=== PATIENT | female | born 1965 | race Caucasian/White ===

== ENCOUNTER 2018-09-19 06:23 | Inpatient (IN) | payer OTHER, MEDICARE ==
[2018-09-19] MEDS ORDERED: fentaNYL CITRATE 250 MCG/5 ML VIAL ONE (07:31)
[2018-09-19] MEDS ORDERED: SUCCINYLCHOLINE CHLORIDE 200 MG/10 ML VIAL ONE (07:32)
[2018-09-19] MEDS ORDERED: MIDAZOLAM HCL 2 MG/2 ML SINGLE DOSE VIAL ONE ×3 (07:32→09:22)
[2018-09-19] MEDS ORDERED: LIDOCAINE HCL/PF 2% SDV 5ML VIAL ONE (07:32)
[2018-09-19] MEDS ORDERED: ONDANSETRON 4 MG/2 ML VIAL ONE ×2 (07:32→15:43)
[2018-09-19] MEDS ORDERED: ROCURONIUM BROMIDE 50 MG/5 ML VIAL ONE (07:32)
[2018-09-19] MEDS ORDERED: DEXAMETHASONE SOD PHOSPHATE 4 MG/1 ML VIAL ONE (07:32)
[2018-09-19] MEDS ORDERED: PROPOFOL 20 ML ONE ×18 (07:32→14:59)
[2018-09-19] MEDS ORDERED: BENZOIN TINCTURE SWABSTICK TP ONE (07:55)
[2018-09-19] MEDS ORDERED: THROMBIN (BOVINE) 5,000 UNIT VIAL TP ONE ×2 (07:55→12:14)
[2018-09-19] MEDS ORDERED: BUPIVACAINE HCL/PF 0.25% (2.5MG/ML) 10 ML VIAL ONE ×2 (07:55→09:20)
[2018-09-19] MEDS ORDERED: HEPARIN NA (PORCINE) 5,000 UNITS/ML 1ML VIAL ONE (07:55)
[2018-09-19] MEDS ORDERED: BUPIVACAINE LIPOSOME/PF (EXPAREL) 266 MG/20 ML VIAL NR ONE (09:30)
[2018-09-19] MEDS ORDERED: HYDROmorphone HCl 2 MG/ML VIAL ONE (10:12)
[2018-09-19] MEDS ORDERED: morphine SULFATE/Preservative Free 0.5 MG/ML (1cc Syringe) ONE (10:41)
[2018-09-19] MEDS ORDERED: KETAMINE HCL 200 MG/20 ML VIAL ONE (11:15)
[2018-09-19] MEDS ORDERED: ceFAZolin SODIUM 1 GM VIAL ONE (11:26)
[2018-09-19] MEDS ORDERED: ceFAZolin SODIUM 1 GM VIAL IVPB ONE (11:30)
[2018-09-19] MEDS ORDERED: TRANEXAMIC ACID 1000 MG/10 ML VIAL ONE ×2 (11:51→13:26)
--- NOTE | 2018-09-19 14:59 | PN ---
Progress Note (short form) - Note Progress Note: 52F s/p L3, L4, L5, S1 laminectomies; bilateral L2 laminotomies; L3-L4, L4-L5, L5-S1 discectomies; L3-L4, L4-L5, L5-S1 PLIF; insertion of biomechanical device L3-L4, L4-L5, L5-S1; L3-S1 posterior arthrodesis; L3-S1 posterior instrumentation POD #0. Intra-operative durotomy s/p successful primary repair. -Admit to ICU post-op. -Pain control: per anaesthesia team; recommend METAL FITTERS AND MACHINISTS; No NSAID's. -NPO until flatus. -Strict bedrest x 48 hrs. post-op d/t intra-operative durotomy. -DVT PPx: -Mechanical only: GABBY's, SCD's. -Incentive spirometry q15min. -q4h B/L LE NV checks. -Post-op antibiotics x 2 doses. -f/u AM labs. -f/u drain output. -d/c Chapman catheter when patient ambulating comfortably. -Care per medical hospitalist team. -No bending, lifting more than 5lbs, or twisting x 6 months. -Discharge planning[facility]; call for appointment; . -Will follow. Shane Navarrete MD (Orthopaedic Surgery).
--- NOTE | 2018-09-19 15:09 | OP ---
Operative Note - Note: Operative Date: 09/19/18 Pre-Operative Diagnosis: 1. 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 2. L3-S1 spinal stenosis with neurogenic claudication. 3. Lumbar scoliosis. 4. Multi-level lumbar segmental instability. 5. Epidural lipomatosis. Operation: 1. L3, L4, L5, S1 laminectomies. 2. L2 laminotomy. 3. L3-L4, L4-L5 , L5-S1 discectomies. 4. L3-L4, L4-L5, L5-S1 PLIF. 5. Insertion of biomechanical devices L3-L4, L4-L5, L5-S1. 6. L3-S1 posterior arthrodesis. 7. L3-S1 posterior instrumentation. 8. Bone autograft. 9. Bone allograft. 10. Bone marrow aspiration. 11. Stem cell autograft. 12. Complex wound closure ( 15cm). 13. Intra-operative biplanar fluoroscopy. 14. Intra-operative neural monitoring Findings: 1. Epidural lipomatosis 2. Segmental instability L3-S1 Surgeon: Shane Navarrete Supervisor Of Guidance And Testing: Héctor Navarrete Anesthesiologist/SALES ORDER SPECIALIST: Carolina Bravo Anesthesia: General, Local (Erector spinae block) Specimens Removed: L3-L4, L4-L5, L5-S1 discs Estimated Blood Loss (mls): 1,700 Drains & Tubes with Location: 1 x superficial HemoVac Blood Volume Replaced (mls): 500 (Cell saver) Fluid Volume Replaced (mls): 3,000 (Crystalloid) Operative Report Dictated: Yes
[2018-09-19] MEDS ORDERED: GLYCOPYRROLATE 0.2 MG/1 ML VIAL ONE ×2 (15:25→15:43)
[2018-09-19] MEDS ORDERED: NEOSTIGMINE METHYLSULFATE 0.5 MG/1 ML - 10 ML MDV ONE (15:25)
[2018-09-19] MEDS ORDERED: ESMOLOL HCL 200,000 MCG/20 ML VIAL ONE (15:50)
[2018-09-19] MEDS ORDERED: ONDANSETRON 4 MG/2 ML VIAL IVPUSH PRN ×2 (16:56→17:33)
[2018-09-19] MEDS ORDERED: LACTATED RINGERS SOLUTION 1,000 ML IV SCH ×2 (17:00→17:45)
--- NOTE | 2018-09-19 17:14 | CONSULT ---
Consultation: REQUESTING PROVIDER: CONSULT REQUEST: We have been asked to medically evaluate this patient for admission to ICU. HISTORY OF PRESENT ILLNESS: 52 y/o F s/p L3, L4, L5, S1 laminectomies; bilateral L2 laminotomies; L3-L4, L4- L5, L5-S1 discectomies; L3-L4, L4-L5, L5-S1 PLIF; insertion of biomechanical device L3-L4, L4-L5, L5-S1; L3-S1 posterior arthrodesis; L3-S1 posterior instrumentation POD #0. Intra-operative durotomy s/p successful primary repair. Patient tolerated the procedure well. 1700mls estimated blood loss. Awake and alert in ICU. Pain well controlled however has mild pain over the incision site. Denies fevers, chills, chest pain, SOB, headache, abdominal pain, nausea, vomiting, diarrhea, constipation. REVIEW OF SYSTEMS: CONSTITUTIONAL: Absent: fever, chills, diaphoresis, generalized weakness, malaise, loss of appetite, weight change HEENT: Absent: rhinorrhea, nasal congestion, throat pain, throat swelling, difficulty swallowing, mouth swelling, ear pain, eye pain, visual changes CARDIOVASCULAR: Absent: chest pain, syncope, palpitations, irregular heart rate, lightheadedness , peripheral edema RESPIRATORY: Absent: cough, shortness of breath, dyspnea with exertion, orthopnea, wheezing, stridor, hemoptysis GASTROINTESTINAL: Absent: abdominal pain, abdominal distension, nausea, vomiting, diarrhea, constipation, melena, hematochezia GENITOURINARY: Absent: dysuria, frequency, urgency, hesitancy, hematuria, flank pain, genital pain MUSCULOSKELETAL: Present: back pain Absent: myalgia, arthralgia, joint swelling, neck pain SKIN: Absent: rash, itching, pallor HEMATOLOGIC/IMMUNOLOGIC: Absent: easy bleeding, easy bruising, lymphadenopathy, frequent infections ENDOCRINE: Absent: unexplained weight gain, unexplained weight loss, heat intolerance, cold intolerance NEUROLOGIC: Absent: headache, focal weakness or paresthesias, dizziness, unsteady gait, seizure, mental status changes, bladder or bowel incontinence PSYCHIATRIC: Absent: anxiety, depression, suicidal or homicidal ideation, hallucinations. PHYSICAL EXAMINATION Vital Signs - 24 hr 09/19/18 09/19/18 07:17 07:38 Temperature 97.8 F Pulse Rate 83 Respiratory 18 Rate Blood Pressure 112/64 O2 Sat by Pulse 95 Oximetry (%) GENERAL: A&Ox3, NAD HEAD: NCAT EYES: PERRL, EOMI, sclera anicteric, conjunctiva clear. No lid lag. EARS, NOSE, THROAT: Moist mucous membranes. NECK: Supple without lymphadenopathy or JVD LUNGS: CTA b/l, No wheezes, no crackles HEART: Regular rate and rhythm, normal S1 and S2 without murmur ABDOMEN: Soft, nontender, not distended, + bowel sounds, no guarding LOWER EXTREMITIES: 2+ pulses, No calf tenderness. No peripheral edema. NEUROLOGICAL: Cranial nerves II-XII intact. Normal speech. SKIN: Warm, dry Laboratory Results - last 24 hr 09/19/18 09/19/18 06:51 07:30 Blood Type B NEGATIVE B NEGATIVE Antibody Screen Negative Active Medications Hydromorphone HCl (Dilaudid Living Specialist -) 10 mg REFRIGERATION TECH REFRIGERATION TECH NAVYA; Protocol Stop: 09/22/18 17:14 Lactated Ringer's (Lactated Ringers Solution) 1,000 mls @ 125 mls/hr IV ASDIR NAVYA Ondansetron HCl (Zofran Injection) 4 mg IVPUSH Q6H PRN PRN Reason: NAUSEA AND/OR VOMITING Stop: 09/20/18 03:00 ASSESSMENT/PLAN: 52 y/o F s/p L3, L4, L5, S1 laminectomies; bilateral L2 laminotomies; L3-L4, L4- L5, L5-S1 discectomies; L3-L4, L4-L5, L5-S1 PLIF; insertion of biomechanical device L3-L4, L4-L5, L5-S1; L3-S1 posterior arthrodesis; L3-S1 posterior instrumentation; Intra-operative durotomy s/p successful primary repair POD #0 presents to the ICU for further monitoring #Neuro S/P Spinal Surgery -Pain control per anaesthesia team; recommend REFRIGERATION TECH; No NSAID's -q4h B/L LE NV checks #Cardio -No active issues -Maintaining MAP >65 without pressor support -Will continue to monitor #Pulmonary -No active issues -Incentive spirometry q15min -Supplemental O2 PRN to maintain SpO2>90% #GI: -NPO until passes flatus. #MSK: -Strict bedrest x 48 hrs. post-op d/t intra-operative durotomy. -No bending, lifting more than 5lbs, or twisting x 6 months. as per ortho. #FEN: -LR @ 125ml/hr -Replete lytes PRN -NPO until passes flatus #PPx -DVT: GABBY's, SCD's #FLD: -Chapman catheter in place, d/c once ambulating -HemoVac drain present at bedside Code Status: Full code Dispo: We will continue to follow the patient. Thank you for this consultative opportunity. Visit type - Emergency Visit Emergency Visit: Yes ED Registration Date: 09/19/18 Care time: The patient presented to the Emergency Department on the above date and was hospitalized for further evaluation of their emergent condition. - New Patient This patient is new to me today: Yes Date on this admission: 09/19/18 - Critical Care Critical Care patient: Yes Total Critical Care Time (in minutes): 40 Critical Care Statement: The care of this patient involved high complexity decision making to prevent further life threatening deterioration of the patient 's condition and/or to evaluate & treat vital organ system(s) failure or risk of failure.
[2018-09-19] MEDS ORDERED: AZELASTINE HCL IH PRN (17:30)
[2018-09-19] MEDS ORDERED: ALBUTEROL SO4 0.083% IH SOL 2.5 MG/3 ML VIAL.NEB. NEB PRN (17:30)
[2018-09-19] MEDS ORDERED: NAPROXEN SCJ PRN (17:30)
[2018-09-19] MEDS ORDERED: PATIENT'S OWN MEDICATION (NON-FORMULARY) (Linaclotide [Linzess] 145 MCG) PO PRN (17:30)
[2018-09-19] MEDS ORDERED: SUMATRIPTAN SCJ PRN (17:30)
[2018-09-19] MEDS ORDERED: ZOLPIDEM TARTRATE 5 MG TABLET PO PRN (17:30)
[2018-09-19] MEDS: HYDROmorphone *PCA* 10MG/50ML DISP.SYRIN PCA SCH (17:45)
[2018-09-19] MEDS: ACETAMINOPHEN 1000 MG/100 ML VIAL (NON FORMULARY) IVPB SCH (18:10)
--- NOTE | 2018-09-19 18:22 | OP ---
DATE OF OPERATION: DATE OF DICTATION: 09/19/2018 SURGEON: Shane Navarrete MD DEPUTY [employer]ONWE[employer]'S ATTORNEY: Héctor Navarrete MD PREOPERATIVE DIAGNOSIS: 1. 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 2. L3-S1 spinal stenosis with neurogenic claudication. 3. Lumbar scoliosis. 4. Multi-level lumbar segmental instability. 5. Epidural lipomatosis. POSTOPERATIVE DIAGNOSIS: 1. 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 2. L3-S1 spinal stenosis with neurogenic claudication. 3. Lumbar scoliosis. 4. Multi-level lumbar segmental instability. 5. Epidural lipomatosis. OPERATION PERFORMED: 1. L3, L4, L5, S1 laminectomies. 2. L2 laminotomy. 3. L3-L4, L4-L5, L5-S1 discectomies. 4. L3-L4, L4-L5, L5-S1 PLIF. 5. Insertion of biomechanical devices L3-L4, L4-L5, L5-S1. 6. L3-S1 posterior arthrodesis. 7. L3-S1 posterior instrumentation. 8. Repair durotomy 9. Bone autograft. 10. Bone allograft. 11. Bone marrow aspiration. 12. Stem cell autograft. 13. Complex wound closure (15cm). 14. Intra-operative biplanar fluoroscopy. 15. Intra-operative neural monitoring ANESTHESIA: General. ANTIBIOTICS GIVEN: 2 g Kefzol given preoperative, 1 Kefzol given at the time of seating of the instrumentation. ESTIMATED BLOOD LOSS: 1700 mL. Cell Saver 500 mL given back. DESCRIPTION OF PROCEDURE: The patient was correctly identified. Brought to the operating room. Time-out was called. Imaging was available for intraoperative evaluation. With the patient prone on a Valentin table, all bony points padded, eyes protected appropriately, and the table seated at 10 degrees head up. The skin was prepped with Betadine scrub solution, wiped off with alcohol, DuraPrep applied with a window drape applied. Midline incision was utilized. Dissection was taken from to the tip of the spinous process of L2 right down to S1. Subperiosteal dissection performed exposing the spinous process of the lamina, the facet structures, and the transverse processes. Hemostasis achieved. Was difficult because of just a general ooze. Correct levels identified for verification of correct details of levels. The anatomical guidelines were also utilized to achieve this. The lamina of L3, L4 , L5 were resected using Leksell rongeurs, Kerrison upcuts, and osteotomizing splitting the pars intra-articularis and imploding the bone inwards with the osteotomy extended into the inferior facet at each level. The bone was imploded into the actual vertebral canal and delivered without any difficulty. Distally just proximal to the S1 edge of the posterior lamina, the dura was adherent to the underlying bone bed, and inadvertently dura was torn resulting in a dura leak. This incidental dural leak was then repaired with 4-0 Nurolon interrupted sutures completely sealed 3 times utilizing Valsalva maneuvers, which showed that there was no leakage but still Surgicel and fibrin glue were placed to seal this completely. The dura was then retracted from right to left. Epidural veins at the 3-4, 4-5, and 5 level were dealt with bipolar Bovie. Each disk was treated in identically the same way with an elliptical annulectomy performed. We morselized the disk at L3-L4 shaving with a size 12 shaver and a size 13-mm Fortilink cage interbody spacer inserted. At L4-L5, a 13 shaver was utilized and a 14-mm cage inserted. At L5-S1, a 12-mm Fortilink spacer was utilized. Solid fixation of each cage utilized. Anterior arthrodesis was achieved by packing each interbody space prior to the insertion of the cage with autologous bone, which was harvested from the posterior elements of the laminectomy, milled with a Midas Thad mill, and packed into the interbody space appropriately. Verification of the positions of the cage was noted on x-ray as lateral fluoroscopy x-ray excellent positioning noted. The pedicles of L3, L4, L5, S1 were then identified using anatomic guidelines. Using lateral fluoroscopy, the pedicles were drilled with a 4/5 drill bit. The pedicles in L3, L4, L5 were 6.5-mm x 45-mm screws. The S1 screws were 40 x 7.5 screws. Solid fixation achieved throughout. Verification with lateral fluoroscopic in AP. Fluoroscopic x-rays revealed excellent positioning. Once this had been performed and neural monitoring was well above the safe level parameters and noted, the rods were contoured appropriately and fixed to the screw heads with the appropriate caps and final tightening with the torque device. One Crosslink applied that is proximally. The wounds were thoroughly lavaged throughout the procedure. The retractors were released. The muscles gently retracted to expose the transverse processes, and this area was packed with bone graft. This was a mixture of autograft expanded with allograft. Bone marrow aspirate concentrate was harvested from the left posterior ilium and mixed with the bone graft itself. The muscle of the erector spinae was carefully evaluated. Small fragmented areas of muscle were resected. The wounds were thoroughly lavaged again. Closure fascia 1 Vicryl, subcutaneous 1- 0 and 2-0 Vicryl, skin 3-0 Monocryl with Steri-Strips. Drainage, 1/8" HemoVac superficial to gravity only. Plan for 48 hours bedrest. No other orders at this stage except for the routine nursing orders and antibiotic usage over the next 24 hours. MD SHGAUFTA Sanchez/[id number] MTDD
[2018-09-19] MEDS ORDERED: PT OWN MED DRAWER 7, Y5N ONE (18:43)
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
[2018-09-19] MEDS ORDERED: traZODone HCL 100 MG TABLET (FP) PO SCH (22:00)
[2018-09-19] MEDS: DULoxetine HCL 30 MG CAPSULE.DR (FP) PO SCH (22:42)
[2018-09-19] MEDS: DONEPEZIL HCL 10 MG TABLET (FP) PO SCH (22:42)
[2018-09-19] MEDS: TIZANIDINE HCL 4 MG TABLET PO SCH (22:42)
[2018-09-19] MEDS: GABAPENTIN 300 MG CAPSULE (FP) PO SCH (22:43)
[2018-09-19] MEDS: PANTOPRAZOLE 40 MG TABLET (FP) PO SCH (22:43)
[2018-09-19] MEDS ORDERED: ceFAZolin 2 GRAM PREMIX BAG IVPB SCH (23:00)
[2018-09-19] MEDS: oxyCODONE HCL 10 MG SUSTAINED ACTING TABLET PO SCH (23:39)
[2018-09-19] MEDS: LORazepam 1 MG TABLET PO SCH (23:39)
[2018-09-19] MEDS: CEFAZOLIN 2 GM/D5W 2 GM/50 ML ML IVPB SCH (23:41)
[2018-09-20] MEDS ORDERED: PT OWN MED DRAWER 7, Y5N ONE ×7 (00:52→18:37)
[2018-09-20] MEDS: traZODone HCL 100 MG TABLET (FP) PO SCH ×2 (01:00→21:44)
[2018-09-20] MEDS: ACETAMINOPHEN 1000 MG/100 ML VIAL (NON FORMULARY) IVPB SCH ×2 (01:05→09:50)
[2018-09-20] MEDS: oxyCODONE HCL 5 MG TABLET PO PRN ×2 (03:01→07:26)
[2018-09-20] MEDS: LORazepam 1 MG TABLET PO SCH ×3 (05:18→21:08)
[2018-09-20] MEDS: CYCLOBENZAPRINE HCL 10 MG TABLET (FP) PO SCH ×3 (05:19→21:09)
[2018-09-20] MEDS: oxyCODONE HCL 10 MG SUSTAINED ACTING TABLET PO SCH (05:19)
[2018-09-20] MEDS: GABAPENTIN 300 MG CAPSULE (FP) PO SCH ×3 (05:20→21:10)
[2018-09-20 06:04] LABS: BASO % 0.1 % (0-2.0); HEMATOCRIT 26.9 % (32.4-45.2); HEMOGLOBIN 8.9 GM/dL (10.7-15.3); LYMPH % 12.5 % (8-40); MCH 28.5 pg (25.7-33.7); MCHC 33.2 g/dl (32.0-36.0); MEAN CELL VOLUME 85.8 fl (80-96); MEAN PLT VOLUME 8.1 fl (7.5-11.1); NEUT % 75.4 % (42.8-82.8); PLATELET COUNT 260 K/MM3 (134-434); RBC 3.14 M/mm3 (3.60-5.2); RDW 15.5 % (11.6-15.6); WHITE BLOOD COUNT 9.8 K/mm3 (4.0-10.0)
[2018-09-20 06:17] LABS: ALBUMIN 2.7 g/dl (3.4-5.0); ALK PHOS 120 U/L (45-117); ANION GAP 5 MMOL/L (8-16); BILIRUBIN,TOTAL 0.2 mg/dL (0.2-1); BLOOD UREA NITROGEN 9 mg/dL (7-18); CALCIUM 7.4 mg/dL (8.5-10.1); CHLORIDE 110 mmol/L (98-107); CO2 28 mmol/L (21-32); CREATININE 0.9 mg/dL (0.55-1.3); GLUCOSE,RANDOM 120 mg/dL (74-106); MAGNESIUM 2.1 mg/dL (1.8-2.4); PHOSPHOROUS 5.3 mg/dL (2.5-4.9); POTASSIUM 4.6 mmol/L (3.5-5.1); SGOT/AST 37 U/L (15-37); SGPT/ALT 22 U/L (13-61); SODIUM 143 mmol/L (136-145)
[2018-09-20] MEDS: CEFAZOLIN 2 GM/D5W 2 GM/50 ML ML IVPB SCH (06:49)
[2018-09-20] MEDS: HYDROmorphone *PCA* 10MG/50ML DISP.SYRIN PCA SCH ×3 (07:29→13:45)
[2018-09-20] MEDS: TIZANIDINE HCL 4 MG TABLET PO SCH ×5 (07:48→21:44)
--- NOTE | 2018-09-20 08:58 | PN ---
Physical Exam: SUBJECTIVE: Patient seen and examined this morning. Continues to have sharp pain , 8/10 over incisional site that comes and goes. Patient passed flatus. Tolerating ventimask overnight. Additionally complains of nausea overnight that has since resolved. Denies any fevers, chills, chest pain, SOB, vomiting, diarrhea, constipation. OBJECTIVE: Vital Signs Period Temp Pulse Resp BP Sys/Mukherjee Pulse Ox Last 24 Hr 97.8 F-99.1 F 84-107 10-20 103-129/50-84 88-97 GENERAL: A&Ox3, NAD HEAD: NCAT EYES: PERRL, EOMI EARS, NOSE, THROAT: Moist mucous membranes NECK: Supple without lymphadenopathy or JVD LUNGS: CTA b/l, No wheezes, no crackles HEART: Regular rate and rhythm, normal S1 and S2 without murmur ABDOMEN: Soft, nontender, not distended, + bowel sounds, no guarding EXTREMITIES: 2+ pulses, No calf tenderness. No peripheral edema. NEUROLOGICAL: Cranial nerves II-XII intact. Normal speech. 5/5 muscle strength to Handgrip, dorsiflexion, plantarflexion. Gross sensation intact globally. SKIN: Warm, dry Laboratory Results - last 24 hr 09/19/18 09/19/18 09/20/18 06:51 07:30 05:15 WBC RBC Hgb Hct MCV MCH MCHC RDW Plt Count MPV Absolute Neuts (auto) Neutrophils % Lymphocytes % Monocytes % Eosinophils % Basophils % Nucleated RBC % Sodium 143 Potassium 4.6 Chloride 110 H Carbon Dioxide 28 Anion Gap 5 L BUN 9 Creatinine 0.9 Creat Clearance w eGFR > 60 Random Glucose 120 H Calcium 7.4 L Phosphorus 5.3 H Magnesium 2.1 Total Bilirubin 0.2 AST 37 ALT 22 Alkaline Phosphatase 120 H Total Protein 5.0 L Albumin 2.7 L Blood Type B NEGATIVE B NEGATIVE Antibody Screen Negative 09/20/18 05:15 WBC 9.8 RBC 3.14 L Hgb 8.9 L Hct 26.9 L MCV 85.8 MCH 28.5 MCHC 33.2 RDW 15.5 Plt Count 260 MPV 8.1 Absolute Neuts (auto) 7.4 Neutrophils % 75.4 Lymphocytes % 12.5 Monocytes % 12.0 H Eosinophils % 0.0 Basophils % 0.1 Nucleated RBC % 0 Sodium Potassium Chloride Carbon Dioxide Anion Gap BUN Creatinine Creat Clearance w eGFR Random Glucose Calcium Phosphorus Magnesium Total Bilirubin AST ALT Alkaline Phosphatase Total Protein Albumin Blood Type Antibody Screen Active Medications Acetaminophen (Ofirmev Injection -) 1,000 mg IVPB Q8H [facility] Stop: 09/20/18 09:46 Last Admin: 09/20/18 01:05 Dose: 1,000 mg Albuterol Sulfate (Ventolin 0.083% Nebulizer Soln -) 1 amp NEB Q4H PRN PRN Reason: Dyspnea Cyclobenzaprine HCl (Flexeril -) 10 mg PO TID [facility] Last Admin: 09/20/18 05:19 Dose: 10 mg Donepezil HCl (Aricept -) 10 mg PO HS [facility] Last Admin: 09/19/18 22:42 Dose: Not Given Duloxetine HCl (Cymbalta -) 60 mg PO BID [facility] Last Admin: 09/19/18 22:42 Dose: Not Given Fluconazole (Diflucan -) 200 mg PO DAILY [facility] Gabapentin (Neurontin -) 600 mg PO TID [facility] Last Admin: 09/20/18 05:20 Dose: 600 mg Hydromorphone HCl (Dilaudid Needle Setter -) 10 mg TRADEMARK AFFIXER TRADEMARK AFFIXER [facility]; Protocol Stop: 09/22/18 17:14 Last Admin: 09/20/18 07:29 Dose: 10 mg Lactated Ringer's (Lactated Ringers Solution) 1,000 mls @ 125 mls/hr IV ASDIR [facility] Last Admin: 09/19/18 16:45 Dose: 125 mls/hr Lorazepam (Ativan -) 2 mg PO TID [facility] Last Admin: 09/20/18 05:18 Dose: 2 mg Non-Formulary Medication (Azelastine Hcl [Astepro]) 2 inh IH PRN PRN PRN Reason: ASTHMA Non-Formulary Medication (Linaclotide [Linzess]) 145 mcg PO PRN PRN PRN Reason: CONSTIPATION Non-Formulary Medication (Sumatriptan Succ/Naproxen Sod) 0.5 ml SCJ HS PRN PRN Reason: HEADACHE Ondansetron HCl (Zofran Injection) 4 mg IVPUSH Q6H PRN PRN Reason: NAUSEA AND/OR VOMITING Oxycodone HCl (Oxycontin -) 20 mg PO TID [facility] Last Admin: 09/20/18 05:19 Dose: 20 mg Oxycodone HCl (Roxicodone -) 10 mg PO Q4H PRN PRN Reason: PAIN LEVEL 7 - 10 Last Admin: 09/20/18 07:26 Dose: 10 mg Pantoprazole Sodium (Protonix -) 40 mg PO BID [facility] Last Admin: 09/19/18 22:43 Dose: Not Given Sertraline HCl (Zoloft -) 50 mg PO DAILY [facility] Tizanidine HCl (Tizanidine Hcl) 4 mg PO QID [facility] Last Admin: 09/20/18 07:48 Dose: Not Given Trazodone HCl (Desyrel -) 300 mg PO HS [facility] Last Admin: 09/20/18 01:00 Dose: 300 mg Zolpidem Tartrate (Ambien -) 10 mg PO HS PRN PRN Reason: INSOMNIA Last Admin: 09/20/18 03:34 Dose: 10 mg ASSESSMENT/PLAN: 52 y/o F with PMHx of Asthma, Anxiety presents to the ICU for further monitoring s/p L3, L4, L5, S1 laminectomies; bilateral L2 laminotomies; L3-L4, L4-L5, L5-S1 discectomies; L3-L4, L4-L5, L5-S1 PLIF; insertion of biomechanical device L3-L4, L4-L5, L5-S1; L3-S1 posterior arthrodesis; L3-S1 posterior instrumentation; Intra-operative durotomy s/p successful primary repair #Neuro S/P Spinal Surgery POD #1 Hx of Diabetic Neuropathy, Dopa responsive Dystonia, Anxiety, Depression, Insomnia, Memory loss ?Dementia, Migraines -Pain control per anaesthesia team; recommend TRADEMARK AFFIXER; No NSAID's -Continue Acetaminophen -D/C Oxycodone, Oxycontin -Pain management (Dr. Burleson) Consulted, Appreciate Rec's -Start MS contin, MS IR, Toradol as per Pain mgmt -Zolpidem, Trazadone for insomnia -Donepezil for memory loss ? Dementia -Lorazepam for Dopa responsive dystonia -Duloxetine, Sertraline for depression -Cyclobenzaprine, Tinzanidine for muscle spasms -Gabapentin for neuropathic pain -Sumatriptan for Migraines -q4h B/L LE NV checks #Cardio -No active issues -Maintaining MAP >65 without pressor support -Will continue to monitor #Pulmonary Hx of Asthma -No active issues -Incentive spirometry q15min -Supplemental O2 PRN to maintain SpO2>90% -Continue Albuterol Neb Q4H PRN, Azelastine 2 inh PRN #GI: Nausea, Vomiting Hx of Constipation -Passed Flatus overnight, Can advance to Soft diet -Continue Pantoprazole 40mg PO BID, Ondansetron 4mg IV Q6H PRN -Continue Linaclotide 145 mcg PRN #MSK: -Strict bedrest x 48 hrs. post-op d/t intra-operative durotomy. -No bending, lifting more than 5lbs, or twisting x 6 months. as per ortho #FEN: -LR @ 125ml/hr -Replete lytes PRN -Advance to Soft diet #PPx -DVT: GABBY's, SCD's -GI: Pantoprazole #FLD: -Chapman catheter in place, d/c once ambulating -HemoVac drain present at bedside Code Status: Full code Dispo: We will continue to follow the patient. Thank you for this consultative opportunity. Visit type - Emergency Visit Emergency Visit: Yes ED Registration Date: 09/19/18 Care time: The patient presented to the Emergency Department on the above date and was hospitalized for further evaluation of their emergent condition. - New Patient This patient is new to me today: No - Critical Care Critical Care patient: Yes Total Critical Care Time (in minutes): 37 Critical Care Statement: The care of this patient involved high complexity decision making to prevent further life threatening deterioration of the patient 's condition and/or to evaluate & treat vital organ system(s) failure or risk of failure.
[2018-09-20] MEDS: FLUCONAZOLE 100 MG TABLET (UD) PO SCH (09:50)
[2018-09-20] MEDS: DULoxetine HCL 30 MG CAPSULE.DR (FP) PO SCH ×2 (09:50→21:09)
[2018-09-20] MEDS: SERTRALINE HCL 50 MG TABLET (FP) PO SCH (09:50)
[2018-09-20] MEDS: PANTOPRAZOLE 40 MG TABLET (FP) PO SCH ×2 (09:51→21:08)
--- NOTE | 2018-09-20 10:50 | CONSULT ---
Consult Consult Specialty:: Pain Management - History Source History Provided By: Patient Limitations to Obtaining History: No Limitations - Past Medical History ...: No (postmenopausal 3 years) Musculoskeletal: Yes: Chronic low back pain - Alcohol/Substance Use Hx Alcohol Use: Yes (occassional) - Smoking History Smoking history: Never smoked Have you smoked in the past 12 months: No Home Medications - Allergies Allergies/Adverse Reactions: Allergies Allergy/AdvReac Type Severity Reaction Status Date / Time aspirin AdvReac Severe Verified 09/16/18 09:40 NSAIDS (Non-Steroidal AdvReac Severe Verified 09/16/18 08:54 Anti-Inflamma - Home Medications Home Medications: Ambulatory Orders Albuterol 0.083% Nebulizer Rachelle [Ventolin 0.083% Nebulizer Soln -] 1 amp .ROUTE PRN PRN 09/16/18 Azelastine HCl [Astepro] 2 inh IH PRN PRN 09/16/18 Cyanocobalamin (Vitamin B-12) [Vitamin B-12] 1,000 mcg SCJ ASDIR 09/16/18 Cyclobenzaprine HCl [Amrix] 30 mg PO DAILY 09/16/18 Donepezil HCl [Aricept] 23 mg PO HS 09/16/18 Duloxetine HCl [Cymbalta] 60 mg PO BID 09/16/18 Fluconazole 200 mg PO PRN PRN 09/16/18 Gabapentin 600 mg PO TID 09/16/18 LORazepam [Ativan] 2 mg PO TID 09/16/18 Linaclotide [Linzess] 145 mcg PO PRN PRN 09/16/18 Omeprazole 40 mg PO BID 09/16/18 Oxycodone HCl/Acetaminophen [Percocet 10-325 mg Tablet] 1 tab PO PRN PRN Oxycodone Myristate [Xtampza ER] 18 mg PO TID 09/16/18 Promethazine HCl [Phenergan] 12.5 mg IJ PRN PRN 09/16/18 Sertraline HCl 50 mg PO DAILY 09/16/18 Sulfamethoxazole/Trimethoprim [Bactrim Ds -] 1 tab PO BID 09/16/18 Sumatriptan Succ/Naproxen Sod 0.5 ml SCJ HS PRN 09/16/18 Tizanidine HCl 4 mg PO QID 09/16/18 Trazodone HCl 300 mg PO HS 09/16/18 Zolpidem Tartrate [Ambien] 10 mg PO PRN PRN 09/16/18 Review of Systems - Review of Systems Eyes: reports: No Symptoms HENT: reports: No Symptoms Neck: reports: No Symptoms Cardiovascular: reports: No Symptoms Respiratory: reports: No Symptoms Gastrointestinal: reports: Constipation Genitourinary: reports: No Symptoms Musculoskeletal: reports: Back Pain Neurological: reports: No Symptoms Pain Intensity: 10 Physical Exam Vital Signs: Vital Signs Temperature 97.8 F 09/20/18 08:00 Pulse Rate 104 H 09/20/18 10:10 Respiratory Rate 20 09/20/18 10:10 Blood Pressure 117/78 09/20/18 10:10 O2 Sat by Pulse Oximetry (%) 97 09/20/18 08:33 Constitutional: Yes: Well Nourished Eyes: Yes: WNL HENT: Yes: WNL Neck: Yes: WNL Respiratory: Yes: WNL Gastrointestinal: Yes: WNL Musculoskeletal: Yes: Back Pain, Other (Dressing s/p fusion) Extremities: Yes: WNL Wound/Incision: Yes: Other (dressing) Neurological: Yes: WNL Labs: CBC, BMP 09/20/18 05:15 09/20/18 05:15 Problem List - Problems (1) Postoperative pain after spinal surgery Assessment/Plan: Discussed in detail with Patient , RN and resident about the pain management. 1. continue current care 2, Bowel regimen 3. DVt prophalyxis 4. PT eval and treat, 5/D/C Oxycontin 6.D/C Oxicodon 7. Start MS contin 30 mg TID 8. MSIR 15 mg po q4 PRN 9. Toradol 15 mg IVPUSH q6 PRN for 3 days after meal. Thanks for allowing for your kind referral Dr. Burleson [phone] Code(s): G89.18 - OTHER ACUTE POSTPROCEDURAL PAIN (2) S/P lumbar spinal fusion Assessment/Plan: as above Code(s): Z98.1 - ARTHRODESIS STATUS
[2018-09-20] MEDS ORDERED: KETOROLAC TROMETHAMINE 15 MG/ML VIAL IVPUSH PRN (10:56)
--- NOTE | 2018-09-20 11:07 | PN ---
Teaching Attending Note Name of Resident: Jackie Kamara ATTENDING PHYSICIAN STATEMENT I saw and evaluated the patient. I reviewed the resident's note and discussed the case with the resident. I agree with the resident's findings and plan as documented. SUBJECTIVE: Patient seen and examined in the ICU. Awake and alert. Pain 8/10. Pain management here for assessment. No CP or SOB. Saturating well on NC O2. Intake & Output 09/17/18 09/18/18 09/19/18 09/20/18 23:59 23:59 23:59 23:59 Intake Total 4475 975 Output Total 4100 1005 Balance 375 -30 Weight 219 lb 226 lb 1.6 oz Last Vital Signs Temp Pulse Resp BP Pulse Ox 97.6 F 104 H 20 117/78 97 09/20/18 10:00 09/20/18 10:10 09/20/18 10:10 09/20/18 10:10 09/20/18 10:00 Active Medications Albuterol Sulfate (Ventolin 0.083% Nebulizer Soln -) 1 amp NEB Q4H PRN PRN Reason: Dyspnea Cyclobenzaprine HCl (Flexeril -) 10 mg PO TID [facility] Last Admin: 09/20/18 05:19 Dose: 10 mg Donepezil HCl (Aricept -) 10 mg PO HS [facility] Last Admin: 09/19/18 22:42 Dose: Not Given Duloxetine HCl (Cymbalta -) 60 mg PO BID [facility] Last Admin: 09/20/18 09:50 Dose: 60 mg Fluconazole (Diflucan -) 200 mg PO DAILY [facility] Last Admin: 09/20/18 09:50 Dose: 200 mg Gabapentin (Neurontin -) 600 mg PO TID [facility] Last Admin: 09/20/18 05:20 Dose: 600 mg Hydromorphone HCl (Dilaudid Data Base Design Analyst -) 10 mg MARKET DEVELOPER MARKET DEVELOPER [facility]; Protocol Stop: 09/22/18 17:14 Last Admin: 09/20/18 10:10 Dose: 10 mg Lactated Ringer's (Lactated Ringers Solution) 1,000 mls @ 125 mls/hr IV ASDIR [facility] Last Admin: 09/19/18 16:45 Dose: 125 mls/hr Ketorolac Tromethamine (Toradol Injection -) 15 mg IVPUSH Q6H PRN PRN Reason: PAIN LEVEL 6-10 Stop: 09/25/18 10:55 Lorazepam (Ativan -) 2 mg PO TID [facility] Last Admin: 09/20/18 05:18 Dose: 2 mg Morphine Sulfate (Ms Contin -) 30 mg PO Q8H [facility] Non-Formulary Medication (Azelastine Hcl [Astepro]) 2 inh IH PRN PRN PRN Reason: ASTHMA Non-Formulary Medication (Linaclotide [Linzess]) 145 mcg PO PRN PRN PRN Reason: CONSTIPATION Non-Formulary Medication (Sumatriptan Succ/Naproxen Sod) 0.5 ml SCJ HS PRN PRN Reason: HEADACHE Ondansetron HCl (Zofran Injection) 4 mg IVPUSH Q6H PRN PRN Reason: NAUSEA AND/OR VOMITING Oxycodone HCl (Oxycontin -) 20 mg PO TID [facility] Last Admin: 09/20/18 05:19 Dose: 20 mg Oxycodone HCl (Roxicodone -) 10 mg PO Q4H PRN PRN Reason: PAIN LEVEL 7 - 10 Last Admin: 09/20/18 07:26 Dose: 10 mg Pantoprazole Sodium (Protonix -) 40 mg PO BID [facility] Last Admin: 09/20/18 09:51 Dose: 40 mg Sertraline HCl (Zoloft -) 50 mg PO DAILY [facility] Last Admin: 09/20/18 09:50 Dose: 50 mg Tizanidine HCl (Tizanidine Hcl) 4 mg PO QID [facility] Last Admin: 09/20/18 09:52 Dose: 4 mg Trazodone HCl (Desyrel -) 300 mg PO HS [facility] Last Admin: 09/20/18 01:00 Dose: 300 mg Zolpidem Tartrate (Ambien -) 10 mg PO HS PRN PRN Reason: INSOMNIA Last Admin: 09/20/18 03:34 Dose: 10 mg OBJECTIVE: GENERAL: A&Ox3, NAD HEAD: NCAT EYES: PERRL, EOMI EARS, NOSE, THROAT: Moist mucous membranes NECK: Supple without lymphadenopathy or JVD LUNGS: CTA b/l, No wheezes, no crackles HEART: Regular rate and rhythm, normal S1 and S2 without murmur ABDOMEN: Soft, nontender, not distended, + bowel sounds, no guarding EXTREMITIES: 2+ pulses, No calf tenderness. No peripheral edema. NEUROLOGICAL: Non-focal. Normal speech. 5/5 muscle strength to Handgrip, dorsiflexion, plantarflexion. Gross sensation intact globally. SKIN: Warm, dry Laboratory Results - last 24 hr 09/19/18 09/19/18 09/20/18 06:51 07:30 05:15 WBC RBC Hgb Hct MCV MCH MCHC RDW Plt Count MPV Absolute Neuts (auto) Neutrophils % Lymphocytes % Monocytes % Eosinophils % Basophils % Nucleated RBC % Sodium 143 Potassium 4.6 Chloride 110 H Carbon Dioxide 28 Anion Gap 5 L BUN 9 Creatinine 0.9 Creat Clearance w eGFR > 60 Random Glucose 120 H Calcium 7.4 L Phosphorus 5.3 H Magnesium 2.1 Total Bilirubin 0.2 AST 37 ALT 22 Alkaline Phosphatase 120 H Total Protein 5.0 L Albumin 2.7 L Blood Type B NEGATIVE B NEGATIVE Antibody Screen Negative 09/20/18 05:15 WBC 9.8 RBC 3.14 L Hgb 8.9 L Hct 26.9 L MCV 85.8 MCH 28.5 MCHC 33.2 RDW 15.5 Plt Count 260 MPV 8.1 Absolute Neuts (auto) 7.4 Neutrophils % 75.4 Lymphocytes % 12.5 Monocytes % 12.0 H Eosinophils % 0.0 Basophils % 0.1 Nucleated RBC % 0 Sodium Potassium Chloride Carbon Dioxide Anion Gap BUN Creatinine Creat Clearance w eGFR Random Glucose Calcium Phosphorus Magnesium Total Bilirubin AST ALT Alkaline Phosphatase Total Protein Albumin Blood Type Antibody Screen ASSESSMENT/PLAN: POD #1: s/p L3, L4, L5, S1 laminectomies; bilateral L2 laminotomies; L3-L4, L4- L5, L5-S1 discectomies; L3-L4, L4-L5, L5-S1 PLIF; insertion of biomechanical device L3-L4, L4-L5, L5-S1; L3-S1 posterior arthrodesis; L3-S1 posterior instrumentation; Intra-operative durotomy s/p successful primary repair Asthma by history: stable Anxiety Flat positioning x 48 hours Pain control per pain management No NSAIDs Lorazepam PRN Incentive Spirometry Mechanical VTE prophylaxis Gabapentin PRN BD [place] PRN Continue home GI Meds Drain output monitoring Floor when cleared by Ortho Dr Grant
[2018-09-20] MEDS: morphine SO4 SUSTAINED ACTING 30 MG TABLET.SA PO SCH ×2 (13:24→21:07)
--- NOTE | 2018-09-20 13:32 | PN ---
Progress Note (short form) - Note Progress Note: Anesthesiology/Acute Pain: POD #1 - s/p L3-4 fusion. VSS. Pt. c/o of a lot of pain - pain scores 9-10/10. Dr. Burleson consultation appreciated. Will increase dose on SENIOR BIOINFORMATICS SPECIALIST to 0.3mg. Will follow.
[2018-09-20] MEDS ORDERED: BISACODYL 10 MG SUPP.RECT PR PRN (14:06)
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
[2018-09-20] MEDS: SODIUM CHLORIDE 1,000 ML IV SCH (16:56)
[2018-09-20] MEDS: DONEPEZIL HCL 10 MG TABLET (FP) PO SCH (21:10)
[2018-09-20] MEDS: SENNOSIDES 8.6MG TABLET (FP) PO PRN (21:45)
[2018-09-21] MEDS: HYDROmorphone *PCA* 10MG/50ML DISP.SYRIN PCA SCH (01:47)
[2018-09-21] MEDS: SODIUM CHLORIDE 1,000 ML IV SCH ×2 (02:00→13:30)
[2018-09-21] MEDS: morphine SO4 SUSTAINED ACTING 30 MG TABLET.SA PO SCH ×3 (05:51→21:49)
[2018-09-21] MEDS: CYCLOBENZAPRINE HCL 10 MG TABLET (FP) PO SCH ×3 (05:51→21:48)
[2018-09-21] MEDS: LORazepam 1 MG TABLET PO SCH ×3 (05:51→21:48)
[2018-09-21] MEDS: DOCUSATE SODIUM 100 MG CAPSULE (FP) PO PRN (05:51)
[2018-09-21] MEDS: GABAPENTIN 300 MG CAPSULE (FP) PO SCH ×3 (05:52→21:48)
[2018-09-21 06:00] LABS: BASO % 0.1 % (0-2.0); EOS % 0.9 % (0-4.5); HEMATOCRIT 24.6 % (32.4-45.2); LYMPH % 14.2 % (8-40); MCH 28.2 pg (25.7-33.7); MCHC 32.6 g/dl (32.0-36.0); MEAN CELL VOLUME 86.5 fl (80-96); MONO % 12.3 % (3.8-10.2); NEUT % 72.5 % (42.8-82.8); PLATELET COUNT 234 K/MM3 (134-434); RBC 2.85 M/mm3 (3.60-5.2); RDW 15.9 % (11.6-15.6); WHITE BLOOD COUNT 9.9 K/mm3 (4.0-10.0)
[2018-09-21 06:28] LABS: ALBUMIN 2.4 g/dl (3.4-5.0); ALK PHOS 106 U/L (45-117); ANION GAP 2 MMOL/L (8-16); BILIRUBIN,TOTAL 0.2 mg/dL (0.2-1); BLOOD UREA NITROGEN 7 mg/dL (7-18); CALCIUM 7.1 mg/dL (8.5-10.1); CHLORIDE 105 mmol/L (98-107); CO2 32 mmol/L (21-32); CREATININE 0.8 mg/dL (0.55-1.3); GLUCOSE,RANDOM 108 mg/dL (74-106); MAGNESIUM 1.8 mg/dL (1.8-2.4); PHOSPHOROUS 2.5 mg/dL (2.5-4.9); POTASSIUM 3.9 mmol/L (3.5-5.1); SGOT/AST 45 U/L (15-37); SGPT/ALT 20 U/L (13-61); SODIUM 138 mmol/L (136-145); TOT PROT 4.8 g/dl (6.4-8.2)
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
[2018-09-21] MEDS ORDERED: morphine SULFATE IMMEDIATE RELEASE 30 MG TAB PO PRN (09:43)
[2018-09-21] MEDS: DULoxetine HCL 30 MG CAPSULE.DR (FP) PO SCH ×2 (10:34→21:48)
[2018-09-21] MEDS: FLUCONAZOLE 100 MG TABLET (UD) PO SCH (10:35)
[2018-09-21] MEDS: PANTOPRAZOLE 40 MG TABLET (FP) PO SCH ×2 (10:35→21:49)
[2018-09-21] MEDS: TIZANIDINE HCL 4 MG TABLET PO SCH ×4 (10:35→21:48)
[2018-09-21] MEDS: SERTRALINE HCL 50 MG TABLET (FP) PO SCH (10:35)
--- NOTE | 2018-09-21 12:34 | PN ---
Teaching Attending Note Name of Resident: Jackie Kamara ATTENDING PHYSICIAN STATEMENT I saw and evaluated the patient. I reviewed the resident's note and discussed the case with the resident. I agree with the resident's findings and plan as documented. SUBJECTIVE: Pt seen and examined in the ICU. Still with significant pain. LEGAL CONSULTANT pump adjusted by anesthesia. +nausea but improved with medications OBJECTIVE: Vital Signs Period Temp Pulse Resp BP Sys/Mukherjee Pulse Ox Last 24 Hr 98.1 F-98.7 F 68-118 6-18 101-138/52-78 97-97 Intake & Output 09/18/18 09/19/18 09/20/18 09/21/18 23:59 23:59 23:59 23:59 Intake Total 4475 2400 1200 Output Total 4100 1810 505 Balance 375 590 695 Weight 99.337 kg 102.512 kg 102.994 kg Gen: NAD at rest Heart: RRR Lung: decreased breath sounds at the bases Abd: soft, nontender Ext: no edema CBC, BMP 09/21/18 05:15 09/21/18 05:15 Active Medications Albuterol Sulfate (Ventolin 0.083% Nebulizer Soln -) 1 amp NEB Q4H PRN PRN Reason: Dyspnea Bisacodyl (Dulcolax Suppository -) 10 mg [place] PRN PRN PRN Reason: CONSTIPATION Cyclobenzaprine HCl (Flexeril -) 10 mg PO TID [facility] Last Admin: 09/21/18 05:51 Dose: 10 mg Docusate Sodium (Colace -) 100 mg PO Q8H PRN PRN Reason: CONSTIPATION Last Admin: 09/21/18 05:51 Dose: 100 mg Donepezil HCl (Aricept -) 10 mg PO HS [facility] Last Admin: 09/20/18 21:10 Dose: 10 mg Duloxetine HCl (Cymbalta -) 60 mg PO BID [facility] Last Admin: 09/21/18 10:34 Dose: 60 mg Fluconazole (Diflucan -) 200 mg PO DAILY [facility] Last Admin: 09/21/18 10:35 Dose: 200 mg Gabapentin (Neurontin -) 600 mg PO TID [facility] Last Admin: 09/21/18 05:52 Dose: 600 mg Hydromorphone HCl (Dilaudid Life Agent -) 10 mg LEGAL CONSULTANT LEGAL CONSULTANT [facility]; Protocol Stop: 09/27/18 13:36 Last Admin: 09/21/18 01:47 Dose: 10 mg Sodium Chloride (Normal Saline -) 1,000 mls @ 100 mls/hr IV ASDIR [facility] Last Admin: 09/21/18 02:00 Dose: 100 mls/hr Lorazepam (Ativan -) 2 mg PO TID [facility] Last Admin: 09/21/18 05:51 Dose: 2 mg Morphine Sulfate (Ms Contin -) 30 mg PO TID [facility] Last Admin: 09/21/18 05:51 Dose: 30 mg Morphine Sulfate (Msir -) 15 mg PO Q4H PRN PRN Reason: PAIN SCALE >7 Non-Formulary Medication (Azelastine Hcl [Astepro]) 2 inh IH PRN PRN PRN Reason: ASTHMA Non-Formulary Medication (Linaclotide [Linzess]) 145 mcg PO PRN PRN PRN Reason: CONSTIPATION Non-Formulary Medication (Sumatriptan Succ/Naproxen Sod) 0.5 ml SCJ HS PRN PRN Reason: HEADACHE Ondansetron HCl (Zofran Injection) 4 mg IVPUSH Q6H PRN PRN Reason: NAUSEA AND/OR VOMITING Pantoprazole Sodium (Protonix -) 40 mg PO BID [facility] Last Admin: 09/21/18 10:35 Dose: 40 mg Senna (Senna -) 2 tab PO HS PRN PRN Reason: CONSTIPATION Last Admin: 09/20/18 21:45 Dose: 2 tab Sertraline HCl (Zoloft -) 50 mg PO DAILY [facility] Last Admin: 09/21/18 10:35 Dose: 50 mg Tizanidine HCl (Tizanidine Hcl) 4 mg PO QID [facility] Last Admin: 09/21/18 10:35 Dose: 4 mg Trazodone HCl (Desyrel -) 300 mg PO HS [facility] Last Admin: 09/20/18 21:44 Dose: 300 mg Zolpidem Tartrate (Ambien -) 10 mg PO HS PRN PRN Reason: INSOMNIA Last Admin: 09/20/18 03:34 Dose: 10 mg ASSESSMENT AND PLAN: Lumbar Spinal Stenosis with Radiculopathy and Neurogenic Claudication s/p L3-S1 Laminectomies/PLIF/Insertion of Biomechanical Devices/Posterior Instrumentation Asthma Dopa Responsive Dystonia Anxiety/Depression - pain control - incentive spirometry - bowel regimen - PO as tolerated - flat positioning until this evening - DVT prophylaxis
[2018-09-21] MEDS ORDERED: PT OWN MED DRAWER 7, Y5N ONE ×2 (13:08→17:02)
--- NOTE | 2018-09-21 14:52 | PN ---
Physical Exam: SUBJECTIVE: Patient seen and examined this morning. OPERATING ROOM SPECIALIST dosage adjusted by anesthesia. Denies any fevers, chills, chest pain, SOB, nausea, vomiting, diarrhea, constipation. OBJECTIVE: Vital Signs Period Temp Pulse Resp BP Sys/Mukherjee Pulse Ox Last 24 Hr 98.1 F-99 F 79-118 6-18 101-138/52-78 97-97 GENERAL: A&Ox3, NAD HEAD: NCAT EYES: PERRL, EOMI EARS, NOSE, THROAT: Moist mucous membranes NECK: Supple, No JVD LUNGS: CTA b/l, No wheezes, no crackles HEART: Regular rate and rhythm, normal S1 and S2 without murmur ABDOMEN: Soft, nontender, not distended, + bowel sounds, no guarding EXTREMITIES: 2+ pulses, No calf tenderness. No peripheral edema. NEUROLOGICAL: Cranial nerves II-XII intact. Normal speech. SKIN: Warm, dry Laboratory Results - last 24 hr 09/21/18 09/21/18 05:15 05:15 WBC 9.9 RBC 2.85 L Hgb 8.0 L Hct 24.6 L MCV 86.5 MCH 28.2 MCHC 32.6 RDW 15.9 H Plt Count 234 MPV 8.0 Absolute Neuts (auto) 7.1 Neutrophils % 72.5 Lymphocytes % 14.2 Monocytes % 12.3 H Eosinophils % 0.9 D Basophils % 0.1 Nucleated RBC % 0 Sodium 138 Potassium 3.9 Chloride 105 Carbon Dioxide 32 Anion Gap 2 L BUN 7 Creatinine 0.8 Creat Clearance w eGFR > 60 Random Glucose 108 H Calcium 7.1 L Phosphorus 2.5 Magnesium 1.8 Total Bilirubin 0.2 AST 45 H ALT 20 Alkaline Phosphatase 106 Total Protein 4.8 L Albumin 2.4 L Active Medications Albuterol Sulfate (Ventolin 0.083% Nebulizer Soln -) 1 amp NEB Q4H PRN PRN Reason: Dyspnea Bisacodyl (Dulcolax Suppository -) 10 mg [place] PRN PRN PRN Reason: CONSTIPATION Cyclobenzaprine HCl (Flexeril -) 10 mg PO TID [facility] Last Admin: 09/21/18 13:54 Dose: 10 mg Docusate Sodium (Colace -) 100 mg PO Q8H PRN PRN Reason: CONSTIPATION Last Admin: 09/21/18 05:51 Dose: 100 mg Donepezil HCl (Aricept -) 10 mg PO HS [facility] Last Admin: 09/20/18 21:10 Dose: 10 mg Duloxetine HCl (Cymbalta -) 60 mg PO BID [facility] Last Admin: 09/21/18 10:34 Dose: 60 mg Fluconazole (Diflucan -) 200 mg PO DAILY [facility] Last Admin: 09/21/18 10:35 Dose: 200 mg Gabapentin (Neurontin -) 600 mg PO TID [facility] Last Admin: 09/21/18 13:55 Dose: 600 mg Hydromorphone HCl (Dilaudid Manufacturing Accountant -) 10 mg OPERATING ROOM SPECIALIST OPERATING ROOM SPECIALIST [facility]; Protocol Stop: 09/27/18 13:36 Last Admin: 09/21/18 01:47 Dose: 10 mg Sodium Chloride (Normal Saline -) 1,000 mls @ 100 mls/hr IV ASDIR [facility] Last Admin: 09/21/18 02:00 Dose: 100 mls/hr Lorazepam (Ativan -) 2 mg PO TID [facility] Last Admin: 09/21/18 13:54 Dose: 2 mg Morphine Sulfate (Ms Contin -) 30 mg PO TID [facility] Last Admin: 09/21/18 13:54 Dose: 30 mg Morphine Sulfate (Msir -) 15 mg PO Q4H PRN PRN Reason: PAIN SCALE >7 Non-Formulary Medication (Azelastine Hcl [Astepro]) 2 inh IH PRN PRN PRN Reason: ASTHMA Non-Formulary Medication (Linaclotide [Linzess]) 145 mcg PO PRN PRN PRN Reason: CONSTIPATION Non-Formulary Medication (Sumatriptan Succ/Naproxen Sod) 0.5 ml SCJ HS PRN PRN Reason: HEADACHE Ondansetron HCl (Zofran Injection) 4 mg IVPUSH Q6H PRN PRN Reason: NAUSEA AND/OR VOMITING Pantoprazole Sodium (Protonix -) 40 mg PO BID [facility] Last Admin: 09/21/18 10:35 Dose: 40 mg Senna (Senna -) 2 tab PO HS PRN PRN Reason: CONSTIPATION Last Admin: 09/20/18 21:45 Dose: 2 tab Sertraline HCl (Zoloft -) 50 mg PO DAILY [facility] Last Admin: 09/21/18 10:35 Dose: 50 mg Tizanidine HCl (Tizanidine Hcl) 4 mg PO QID [facility] Last Admin: 09/21/18 13:55 Dose: 4 mg Trazodone HCl (Desyrel -) 300 mg PO HS [facility] Last Admin: 09/20/18 21:44 Dose: 300 mg Zolpidem Tartrate (Ambien -) 10 mg PO HS PRN PRN Reason: INSOMNIA Last Admin: 09/20/18 03:34 Dose: 10 mg ASSESSMENT/PLAN: 52 y/o F with PMHx of Asthma, Anxiety presents to the ICU for further monitoring s/p L3, L4, L5, S1 laminectomies; bilateral L2 laminotomies; L3-L4, L4-L5, L5-S1 discectomies; L3-L4, L4-L5, L5-S1 PLIF; insertion of biomechanical device L3-L4, L4-L5, L5-S1; L3-S1 posterior arthrodesis; L3-S1 posterior instrumentation; Intra-operative durotomy s/p successful primary repair #Neuro S/P Spinal Surgery POD #2 Hx of Diabetic Neuropathy, Dopa responsive Dystonia, Anxiety, Depression, Insomnia, Memory loss ?Dementia, Migraines -Pain control per anaesthesia team; recommend OPERATING ROOM SPECIALIST; No NSAID's -Continue Acetaminophen, MS contin, MS IR, Toradol as per Pain mgmt -Pain management (Dr. Burleson) Consulted, Appreciate Rec's -Zolpidem, Trazadone for insomnia -Donepezil for memory loss ? Dementia -Lorazepam for Dopa responsive dystonia -Duloxetine, Sertraline for depression -Cyclobenzaprine, Tinzanidine for muscle spasms -Gabapentin for neuropathic pain -Sumatriptan for Migraines -q4h B/L LE [place] checks #Cardio -No active issues -Maintaining MAP >65 without pressor support -Will continue to monitor #Pulmonary Hx of Asthma -No active issues -Incentive spirometry q15min -Supplemental O2 PRN to maintain SpO2>90% -Continue Albuterol Neb Q4H PRN, Azelastine 2 inh PRN #GI: Nausea, Vomiting Hx of Constipation -Soft diet -Continue Pantoprazole 40mg PO BID, Ondansetron 4mg IV Q6H PRN, Linaclotide 145 mcg PRN #MSK: -Strict bedrest x 48 hrs. post-op d/t intra-operative durotomy. -No bending, lifting more than 5lbs, or twisting x 6 months. as per ortho #FEN: -NS @ 100ml/hr -Replete lytes PRN -Soft diet #PPx -DVT: GABBY's, SCD's -GI: Pantoprazole #FLD: -Chapman catheter in place, d/c once ambulating -HemoVac drain present at bedside Code Status: Full code Dispo: We will continue to follow the patient. Thank you for this consultative opportunity. Visit type - Emergency Visit Emergency Visit: Yes ED Registration Date: 09/19/18 Care time: The patient presented to the Emergency Department on the above date and was hospitalized for further evaluation of their emergent condition. - New Patient This patient is new to me today: No - Critical Care Critical Care patient: Yes Total Critical Care Time (in minutes): 36 Critical Care Statement: The care of this patient involved high complexity decision making to prevent further life threatening deterioration of the patient 's condition and/or to evaluate & treat vital organ system(s) failure or risk of failure.
--- NOTE | 2018-09-21 17:02 | PATH ---
Surgical Pathology Report Patient Name: KAYLA LARA [facility]. Rec. #: [id number] /Age/Gender: 1965 (Age: 52) / F Account: [id number] Location: [facility]PER Taken: 09/19/2018 Received: 09/20/2018 Reported: 09/21/2018 Physicians: Shane Navarrete M.D. Specimen(s) Received L3-S1 DISC Clinical History Spinal stenosis Final Diagnosis DISC, L3-S1, POSTERIOR LUMBAR INTERBODY FUSION: BENIGN INTERVERTEBRAL DISC TISSUE AND BONE. Electronically Signed María Abernathy M.D. Gross Description Received in formalin labeled "L3-S1 disc," is a 5.5 x 4.2 x 0.7 cm aggregate of comer fragments of fibrocartilaginous tissue. A technical sales representatives portion is submitted in one cassette. DL/09/20/2018 saudi09/20/2018
[2018-09-21] MEDS ORDERED: HYDROmorphone *PCA* 10MG/50ML DISP.SYRIN PCA SCH (20:45)
[2018-09-21] MEDS: traZODone HCL 100 MG TABLET (FP) PO SCH (21:47)
[2018-09-21] MEDS: SENNOSIDES 8.6MG TABLET (FP) PO PRN (21:48)
[2018-09-21] MEDS: DONEPEZIL HCL 10 MG TABLET (FP) PO SCH (21:49)
[2018-09-22] MEDS: SODIUM CHLORIDE 1,000 ML IV SCH ×2 (01:00→21:25)
[2018-09-22] MEDS: GABAPENTIN 300 MG CAPSULE (FP) PO SCH ×3 (06:11→21:23)
[2018-09-22] MEDS: LORazepam 1 MG TABLET PO SCH ×3 (06:11→21:22)
[2018-09-22] MEDS: DOCUSATE SODIUM 100 MG CAPSULE (FP) PO PRN (06:11)
[2018-09-22] MEDS: morphine SO4 SUSTAINED ACTING 30 MG TABLET.SA PO SCH ×3 (06:12→21:22)
[2018-09-22] MEDS: CYCLOBENZAPRINE HCL 10 MG TABLET (FP) PO SCH ×3 (06:12→21:25)
[2018-09-22 06:18] LABS: BASO % 0.3 % (0-2.0); EOS % 0.8 % (0-4.5); HEMATOCRIT 29.5 % (32.4-45.2); HEMOGLOBIN 9.5 GM/dL (10.7-15.3); LYMPH % 9.9 % (8-40); MCH 28.3 pg (25.7-33.7); MCHC 32.2 g/dl (32.0-36.0); MEAN PLT VOLUME 8.1 fl (7.5-11.1); MONO % 10.2 % (3.8-10.2); NEUT % 78.8 % (42.8-82.8); PLATELET COUNT 275 K/MM3 (134-434); RBC 3.36 M/mm3 (3.60-5.2); RDW 15.6 % (11.6-15.6); WHITE BLOOD COUNT 11.5 K/mm3 (4.0-10.0)
[2018-09-22 07:35] LABS: ALBUMIN 2.3 g/dl (3.4-5.0); ALK PHOS 123 U/L (45-117); ANION GAP 8 MMOL/L (8-16); BILIRUBIN,TOTAL 0.3 mg/dL (0.2-1); BLOOD UREA NITROGEN 7 mg/dL (7-18); CALCIUM 7.9 mg/dL (8.5-10.1); CHLORIDE 102 mmol/L (98-107); CO2 30 mmol/L (21-32); CREATININE 0.6 mg/dL (0.55-1.3); GLUCOSE,RANDOM 93 mg/dL (74-106); PHOSPHOROUS 1.9 mg/dL (2.5-4.9); POTASSIUM 4.1 mmol/L (3.5-5.1); SGOT/AST 38 U/L (15-37); SGPT/ALT 20 U/L (13-61); SODIUM 140 mmol/L (136-145); TOT PROT 5.2 g/dl (6.4-8.2)
--- NOTE | 2018-09-22 08:22 | PN ---
Progress Note (short form) - Note Progress Note: Patient stableand c/o stomach pain this morning.Her surgical pain score is 3-4/ 10.So will DC [employer]ANE today and continue PO pain medications.P101,BP 123/78 and Spo2 98% on O2 2L NC.No any anesthesia related problem.Patient DC from the anesthesia care.
[2018-09-22] MEDS: PANTOPRAZOLE 40 MG TABLET (FP) PO SCH ×2 (09:18→21:23)
[2018-09-22] MEDS: DULoxetine HCL 30 MG CAPSULE.DR (FP) PO SCH ×2 (09:18→21:23)
[2018-09-22] MEDS: FLUCONAZOLE 100 MG TABLET (UD) PO SCH (09:18)
[2018-09-22] MEDS: SERTRALINE HCL 50 MG TABLET (FP) PO SCH (09:19)
[2018-09-22] MEDS: TIZANIDINE HCL 4 MG TABLET PO SCH ×4 (09:19→21:27)
[2018-09-22] MEDS ORDERED: NAPH,MB-DB/K PH,MBDB POWDER PACKET PO ONE (09:23)
--- NOTE | 2018-09-22 10:20 | PN ---
Physical Exam: SUBJECTIVE: Patient seen and examined this morning. Was out of bed overnight. No acute overnight events. No new complaints. OBJECTIVE: Vital Signs Period Temp Pulse Resp BP Sys/Mukherjee Pulse Ox Last 24 Hr 98.2 F-99 F 93-114 10-18 104-141/60-86 97-100 GENERAL: A&Ox3, NAD HEAD: NCAT EYES: PERRL, EOMI ENT: Moist mucous membranes NECK: Supple, No JVD LUNGS: CTA b/l, No wheezes, no crackles HEART: Regular rate and rhythm, normal S1 and S2 without murmur ABDOMEN: Soft, nontender, not distended, + bowel sounds, no guarding EXTREMITIES: No edema. NEUROLOGICAL: Cranial nerves II-XII intact. Normal speech. SKIN: Warm, dry Laboratory Results - last 24 hr 09/22/18 09/22/18 05:30 05:30 WBC 11.5 H RBC 3.36 L Hgb 9.5 L Hct 29.5 L D MCV 88.0 MCH 28.3 MCHC 32.2 RDW 15.6 Plt Count 275 MPV 8.1 Absolute Neuts (auto) 9.1 H Neutrophils % 78.8 Lymphocytes % 9.9 D Monocytes % 10.2 Eosinophils % 0.8 Basophils % 0.3 Nucleated RBC % 0 Sodium 140 Potassium 4.1 Chloride 102 Carbon Dioxide 30 Anion Gap 8 BUN 7 Creatinine 0.6 Creat Clearance w eGFR > 60 Random Glucose 93 Calcium 7.9 L Phosphorus 1.9 L Magnesium 2.0 Total Bilirubin 0.3 AST 38 H ALT 20 Alkaline Phosphatase 123 H Total Protein 5.2 L Albumin 2.3 L Active Medications Albuterol Sulfate (Ventolin 0.083% Nebulizer Soln -) 1 amp NEB Q4H PRN PRN Reason: Dyspnea Bisacodyl (Dulcolax Suppository -) 10 mg [place] PRN PRN PRN Reason: CONSTIPATION Last Admin: 09/22/18 08:15 Dose: 10 mg Cyclobenzaprine HCl (Flexeril -) 10 mg PO TID [facility] Last Admin: 09/22/18 06:12 Dose: 10 mg Docusate Sodium (Colace -) 100 mg PO Q8H PRN PRN Reason: CONSTIPATION Last Admin: 09/22/18 06:11 Dose: 100 mg Donepezil HCl (Aricept -) 10 mg PO HS [facility] Last Admin: 09/21/18 21:49 Dose: 10 mg Duloxetine HCl (Cymbalta -) 60 mg PO BID [facility] Last Admin: 09/22/18 09:18 Dose: 60 mg Fluconazole (Diflucan -) 200 mg PO DAILY [facility] Last Admin: 09/22/18 09:18 Dose: 200 mg Gabapentin (Neurontin -) 600 mg PO TID [facility] Last Admin: 09/22/18 06:11 Dose: 600 mg Hydromorphone HCl (Dilaudid Plumbers And Top Helpers -) 10 mg SUGAR MIXER SUGAR MIXER [facility]; Protocol Stop: 09/27/18 20:44 Last Admin: 09/21/18 23:10 Dose: 10 mg Lorazepam (Ativan -) 2 mg PO TID [facility] Last Admin: 09/22/18 06:11 Dose: 2 mg Morphine Sulfate (Ms Contin -) 30 mg PO TID [facility] Last Admin: 09/22/18 06:12 Dose: 30 mg Morphine Sulfate (Msir -) 15 mg PO Q4H PRN PRN Reason: PAIN SCALE >7 Non-Formulary Medication (Azelastine Hcl [Astepro]) 2 inh IH PRN PRN PRN Reason: ASTHMA Non-Formulary Medication (Linaclotide [Linzess]) 145 mcg PO PRN PRN PRN Reason: CONSTIPATION Non-Formulary Medication (Sumatriptan Succ/Naproxen Sod) 0.5 ml SCJ HS PRN PRN Reason: HEADACHE Ondansetron HCl (Zofran Injection) 4 mg IVPUSH Q6H PRN PRN Reason: NAUSEA AND/OR VOMITING Last Admin: 09/22/18 08:23 Dose: 4 mg Pantoprazole Sodium (Protonix -) 40 mg PO BID [facility] Last Admin: 09/22/18 09:18 Dose: 40 mg Senna (Senna -) 2 tab PO HS PRN PRN Reason: CONSTIPATION Last Admin: 09/21/18 21:48 Dose: 2 tab Sertraline HCl (Zoloft -) 50 mg PO DAILY [facility] Last Admin: 09/22/18 09:19 Dose: 50 mg Tizanidine HCl (Tizanidine Hcl) 4 mg PO QID [facility] Last Admin: 09/22/18 09:19 Dose: 4 mg Trazodone HCl (Desyrel -) 300 mg PO [facility] Last Admin: 09/21/18 21:47 Dose: 300 mg Zolpidem Tartrate (Ambien -) 10 mg PO HS PRN PRN Reason: INSOMNIA Last Admin: 09/20/18 03:34 Dose: 10 mg ASSESSMENT/PLAN: 52 y/o F with PMHx of Asthma, Anxiety presents to the ICU for further monitoring s/p L3, L4, L5, S1 laminectomies; bilateral L2 laminotomies; L3-L4, L4-L5, L5-S1 discectomies; L3-L4, L4-L5, L5-S1 PLIF; insertion of biomechanical device L3-L4, L4-L5, L5-S1; L3-S1 posterior arthrodesis; L3-S1 posterior instrumentation; Intra-operative durotomy s/p successful primary repair #Neuro S/P Spinal Surgery POD #3 Hx of Diabetic Neuropathy, Dopa responsive Dystonia, Anxiety, Depression, Insomnia, Memory loss ?Dementia, Migraines -SUGAR MIXER d/c'ed today -Pain control per Pain management; No NSAID's -Pain management (Dr. Burleson) Consulted, Appreciate Rec's -Continue Acetaminophen, MS contin, MS IR, Toradol -Zolpidem, Trazadone for insomnia -Donepezil for memory loss ? Dementia -Lorazepam for Dopa responsive dystonia -Duloxetine, Sertraline for depression -Cyclobenzaprine, Tinzanidine for muscle spasms -Gabapentin for neuropathic pain -Sumatriptan for Migraines -q4h B/L LE [place] checks #Cardio -No active issues -Maintaining MAP >65 without pressor support -Will continue to monitor #Pulmonary Hx of Asthma -No active issues -Incentive spirometry q15min -Supplemental O2 PRN to maintain SpO2>90% -Continue Albuterol Neb Q4H PRN, Azelastine 2 inh PRN #GI: Nausea, Vomiting, resolved Hx of Constipation -Soft diet -Continue Pantoprazole 40mg PO BID, Ondansetron 4mg IV Q6H PRN, Linaclotide 145 mcg PRN -Continue Senna, Colace, Dulcolax Suppository #MSK: -Strict bedrest x 48 hrs completed, Patient Out of bed overnight -No bending, lifting more than 5lbs, or twisting x 6 months. as per ortho #FEN: -PO Fluids -Replete lytes PRN -Soft diet #PPx -DVT: GABBY's, SCD's -GI: Pantoprazole #FLD: -Chapman catheter in place, d/c once ambulating -HemoVac drain present at bedside Code Status: Full code Dispo: Transfer to [facility]-Surg Visit type - Emergency Visit Emergency Visit: Yes ED Registration Date: 09/19/18 Care time: The patient presented to the Emergency Department on the above date and was hospitalized for further evaluation of their emergent condition. - New Patient This patient is new to me today: No - Critical Care Critical Care patient: Yes Total Critical Care Time (in minutes): 36 Critical Care Statement: The care of this patient involved high complexity decision making to prevent further life threatening deterioration of the patient 's condition and/or to evaluate & treat vital organ system(s) failure or risk of failure.
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
--- NOTE | 2018-09-22 12:25 | PN ---
Teaching Attending Note Name of Resident: Jackie Kamara ATTENDING PHYSICIAN STATEMENT I saw and evaluated the patient. I reviewed the resident's note and discussed the case with the resident. I agree with the resident's findings and plan as documented. SUBJECTIVE: Patient seen and examined in the ICU. Sleepy but easily arousable. Remains in Dilaudid PRODUCT MANUFACTURING PROFESSIONAL pump. No CP or SOB. OBJECTIVE: Intake & Output 09/19/18 09/20/18 09/21/18 09/22/18 23:59 23:59 23:59 23:59 Intake Total 4475 2400 2400 1700 Output Total 4100 1810 1060 1105 Balance 039 114 9106 595 Weight 219 lb 226 lb 227 lb 1 oz 240 lb 3.2 oz Last Vital Signs Temp Pulse Resp BP Pulse Ox 98 F 95 H 18 98/54 L 100 09/22/18 10:19 09/22/18 12:00 09/22/18 12:00 09/22/18 12:00 09/22/18 07:50 Active Medications Albuterol Sulfate (Ventolin 0.083% Nebulizer Soln -) 1 amp NEB Q4H PRN PRN Reason: Dyspnea Bisacodyl (Dulcolax Suppository -) 10 mg [place] PRN PRN PRN Reason: CONSTIPATION Last Admin: 09/22/18 08:15 Dose: 10 mg Cyclobenzaprine HCl (Flexeril -) 10 mg PO TID [facility] Last Admin: 09/22/18 06:12 Dose: 10 mg Docusate Sodium (Colace -) 100 mg PO Q8H PRN PRN Reason: CONSTIPATION Last Admin: 09/22/18 06:11 Dose: 100 mg Donepezil HCl (Aricept -) 10 mg PO HS [facility] Last Admin: 09/21/18 21:49 Dose: 10 mg Duloxetine HCl (Cymbalta -) 60 mg PO BID [facility] Last Admin: 09/22/18 09:18 Dose: 60 mg Fluconazole (Diflucan -) 200 mg PO DAILY [facility] Last Admin: 09/22/18 09:18 Dose: 200 mg Gabapentin (Neurontin -) 600 mg PO TID [facility] Last Admin: 09/22/18 06:11 Dose: 600 mg Hydromorphone HCl (Dilaudid Specimen Boss -) 10 mg PRODUCT MANUFACTURING PROFESSIONAL PRODUCT MANUFACTURING PROFESSIONAL [facility]; Protocol Stop: 09/27/18 20:44 Last Admin: 09/21/18 23:10 Dose: 10 mg Sodium Chloride (Normal Saline -) 1,000 mls @ 100 mls/hr IV ASDIR [facility] Last Admin: 09/22/18 01:00 Dose: 100 mls/hr Lorazepam (Ativan -) 2 mg PO TID [facility] Last Admin: 09/22/18 06:11 Dose: 2 mg Morphine Sulfate (Ms Contin -) 30 mg PO TID [facility] Last Admin: 09/22/18 06:12 Dose: 30 mg Morphine Sulfate (Msir -) 15 mg PO Q4H PRN PRN Reason: PAIN SCALE >7 Last Admin: 09/22/18 09:58 Dose: 15 mg Non-Formulary Medication (Azelastine Hcl [Astepro]) 2 inh IH PRN PRN PRN Reason: ASTHMA Non-Formulary Medication (Linaclotide [Linzess]) 145 mcg PO PRN PRN PRN Reason: CONSTIPATION Non-Formulary Medication (Sumatriptan Succ/Naproxen Sod) 0.5 ml SCJ HS PRN PRN Reason: HEADACHE Ondansetron HCl (Zofran Injection) 4 mg IVPUSH Q6H PRN PRN Reason: NAUSEA AND/OR VOMITING Last Admin: 09/22/18 08:23 Dose: 4 mg Pantoprazole Sodium (Protonix -) 40 mg PO BID [facility] Last Admin: 09/22/18 09:18 Dose: 40 mg Potassium Phos/Sodium Phos (Phos-Nak Packet -) 1 packet PO BID [facility] Stop: 09/23/18 22:01 Senna (Senna -) 2 tab PO HS PRN PRN Reason: CONSTIPATION Last Admin: 09/21/18 21:48 Dose: 2 tab Sertraline HCl (Zoloft -) 50 mg PO DAILY [facility] Last Admin: 09/22/18 09:19 Dose: 50 mg Tizanidine HCl (Tizanidine Hcl) 4 mg PO QID [facility] Last Admin: 09/22/18 09:19 Dose: 4 mg Trazodone HCl (Desyrel -) 300 mg PO HS [facility] Last Admin: 09/21/18 21:47 Dose: 300 mg Zolpidem Tartrate (Ambien -) 10 mg PO HS PRN PRN Reason: INSOMNIA Last Admin: 09/20/18 03:34 Dose: 10 mg Gen: NAD at rest Heart: RRR Lung: decreased breath sounds at the bases Abd: soft, nontender Ext: no edema Laboratory Results - last 24 hr 09/22/18 09/22/18 05:30 05:30 WBC 11.5 H RBC 3.36 L Hgb 9.5 L Hct 29.5 L D MCV 88.0 MCH 28.3 MCHC 32.2 RDW 15.6 Plt Count 275 MPV 8.1 Absolute Neuts (auto) 9.1 H Neutrophils % 78.8 Lymphocytes % 9.9 D Monocytes % 10.2 Eosinophils % 0.8 Basophils % 0.3 Nucleated RBC % 0 Sodium 140 Potassium 4.1 Chloride 102 Carbon Dioxide 30 Anion Gap 8 BUN 7 Creatinine 0.6 Creat Clearance w eGFR > 60 Random Glucose 93 Calcium 7.9 L Phosphorus 1.9 L Magnesium 2.0 Total Bilirubin 0.3 AST 38 H ALT 20 Alkaline Phosphatase 123 H Total Protein 5.2 L Albumin 2.3 L ASSESSMENT AND PLAN: Lumbar Spinal Stenosis with Radiculopathy and Neurogenic Claudication s/p L3-S1 Laminectomies/PLIF/Insertion of Biomechanical Devices/Posterior Instrumentation Asthma Dopa Responsive Dystonia Anxiety/Depression - pain control - incentive spirometry - bowel regimen - PO as tolerated - positioning per Ortho - DVT prophylaxis - Floor when cleared by Ortho Dr Grant
[2018-09-22] MEDS ORDERED: SODIUM CHLORIDE 500 ML IV STA (14:54)
--- NOTE | 2018-09-22 20:48 | PN ---
Progress Note (short form) - Note Progress Note: Sedated Still in ICU No report of headache and dressing is dry. PLAN PT mobilize Pain mx to continue
[2018-09-22] MEDS: NAPH,MB-DB/K PH,MBDB POWDER PACKET PO SCH (21:23)
[2018-09-22] MEDS: SENNOSIDES 8.6MG TABLET (FP) PO PRN (21:23)
[2018-09-22] MEDS: DONEPEZIL HCL 10 MG TABLET (FP) PO SCH (21:25)
[2018-09-22] MEDS: traZODone HCL 100 MG TABLET (FP) PO SCH (21:27)
[2018-09-23] MEDS: SODIUM CHLORIDE 1,000 ML IV SCH ×3 (02:00→22:52)
[2018-09-23] MEDS: GABAPENTIN 300 MG CAPSULE (FP) PO SCH ×3 (05:51→22:44)
[2018-09-23] MEDS: CYCLOBENZAPRINE HCL 10 MG TABLET (FP) PO SCH ×3 (05:51→22:46)
[2018-09-23] MEDS: morphine SO4 SUSTAINED ACTING 30 MG TABLET.SA PO SCH ×3 (05:51→22:45)
[2018-09-23] MEDS: LORazepam 1 MG TABLET PO SCH ×3 (05:52→22:47)
[2018-09-23 06:06] LABS: BASO % 0.2 % (0-2.0); EOS % 1.3 % (0-4.5); HEMATOCRIT 24.4 % (32.4-45.2); LYMPH % 13.3 % (8-40); MCH 28.5 pg (25.7-33.7); MCHC 32.9 g/dl (32.0-36.0); MEAN CELL VOLUME 86.7 fl (80-96); MEAN PLT VOLUME 7.5 fl (7.5-11.1); MONO % 10.8 % (3.8-10.2); NEUT % 74.4 % (42.8-82.8); PLATELET COUNT 285 K/MM3 (134-434); RBC 2.82 M/mm3 (3.60-5.2); RDW 15.4 % (11.6-15.6); WHITE BLOOD COUNT 8.4 K/mm3 (4.0-10.0)
[2018-09-23 06:36] LABS: ALK PHOS 107 U/L (45-117); ANION GAP 4 MMOL/L (8-16); BILIRUBIN,TOTAL 0.3 mg/dL (0.2-1); BLOOD UREA NITROGEN 7 mg/dL (7-18); CALCIUM 7.3 mg/dL (8.5-10.1); CHLORIDE 105 mmol/L (98-107); CO2 32 mmol/L (21-32); CREATININE 0.7 mg/dL (0.55-1.3); GLUCOSE,RANDOM 111 mg/dL (74-106); MAGNESIUM 2.2 mg/dL (1.8-2.4); PHOSPHOROUS 2.5 mg/dL (2.5-4.9); POTASSIUM 3.8 mmol/L (3.5-5.1); SGOT/AST 29 U/L (15-37); SGPT/ALT 18 U/L (13-61); SODIUM 141 mmol/L (136-145); TOT PROT 4.8 g/dl (6.4-8.2)
--- NOTE | 2018-09-23 08:21 | PN ---
Progress Note, Physician History of Present Illness: 52 y/o F s/p L3, L4, L5, S1 laminectomies; bilateral L2 laminotomies; L3-L4, L4- L5, L5-S1 discectomies; L3-L4, L4-L5, L5-S1 PLIF; insertion of biomechanical device L3-L4, L4-L5, L5-S1; L3-S1 posterior arthrodesis; L3-S1 posterior instrumentation on 09/19/2018. - Current Medication List Current Medications: Active Medications Albuterol Sulfate (Ventolin 0.083% Nebulizer Soln -) 1 amp NEB Q4H PRN PRN Reason: Dyspnea Bisacodyl (Dulcolax Suppository -) 10 mg [place] PRN PRN PRN Reason: CONSTIPATION Last Admin: 09/22/18 08:15 Dose: 10 mg Cyclobenzaprine HCl (Flexeril -) 10 mg PO TID [facility] Last Admin: 09/23/18 05:51 Dose: 10 mg Docusate Sodium (Colace -) 100 mg PO Q8H PRN PRN Reason: CONSTIPATION Last Admin: 09/22/18 06:11 Dose: 100 mg Donepezil HCl (Aricept -) 10 mg PO HS [facility] Last Admin: 09/22/18 21:25 Dose: 10 mg Duloxetine HCl (Cymbalta -) 60 mg PO BID [facility] Last Admin: 09/22/18 21:23 Dose: 60 mg Fluconazole (Diflucan -) 200 mg PO DAILY [facility] Last Admin: 09/22/18 09:18 Dose: 200 mg Gabapentin (Neurontin -) 600 mg PO TID [facility] Last Admin: 09/23/18 05:51 Dose: 600 mg Sodium Chloride (Normal Saline -) 1,000 mls @ 100 mls/hr IV ASDIR [facility] Last Admin: 09/23/18 02:00 Dose: 100 mls/hr Lorazepam (Ativan -) 2 mg PO TID [facility] Last Admin: 09/23/18 05:52 Dose: Not Given Morphine Sulfate (Ms Contin -) 30 mg PO TID [facility] Last Admin: 09/23/18 05:51 Dose: 30 mg Morphine Sulfate (Msir -) 15 mg PO Q4H PRN PRN Reason: PAIN SCALE >7 Last Admin: 09/22/18 09:58 Dose: 15 mg Ondansetron HCl (Zofran Injection) 4 mg IVPUSH Q6H PRN PRN Reason: NAUSEA AND/OR VOMITING Last Admin: 09/22/18 08:23 Dose: 4 mg Pantoprazole Sodium (Protonix -) 40 mg PO BID [facility] Last Admin: 09/22/18 21:23 Dose: 40 mg Potassium Phos/Sodium Phos (Phos-Nak Packet -) 1 packet PO BID [facility] Stop: 09/23/18 22:01 Last Admin: 09/22/18 21:23 Dose: 1 packet Senna (Senna -) 2 tab PO HS PRN PRN Reason: CONSTIPATION Last Admin: 09/22/18 21:23 Dose: 2 tab Sertraline HCl (Zoloft -) 50 mg PO DAILY [facility] Last Admin: 09/22/18 09:19 Dose: 50 mg Tizanidine HCl (Tizanidine Hcl) 4 mg PO QID [facility] Last Admin: 09/22/18 21:27 Dose: 4 mg Trazodone HCl (Desyrel -) 300 mg PO HS [facility] Last Admin: 09/22/18 21:27 Dose: 300 mg Zolpidem Tartrate (Ambien -) 10 mg PO HS PRN PRN Reason: INSOMNIA Last Admin: 09/20/18 03:34 Dose: 10 mg - Objective Vital Signs: Vital Signs Temperature 97.9 F 09/23/18 06:00 Pulse Rate 97 H 09/23/18 06:00 Respiratory Rate 18 09/23/18 06:00 Blood Pressure 126/64 09/23/18 06:00 O2 Sat by Pulse Oximetry (%) 100 09/22/18 20:00 Middle aged F not in distress c/o pain HEENT: mm moist, no anemia, PERRLA EOMI NECK: No JVd No Bruit CHEST: CTA B/L CVS: S1S2 Rr no m/g/r ABD: No distention, non tender EXT: s/p Spinal surgery , Pulses +, no calf tenderness DISTRESSER: AOX3 non focal, no interval changes Labs: CBC, BMP 09/23/18 05:30 09/23/18 05:30 Problem List - Problems (1) Postoperative pain after spinal surgery Assessment/Plan: S/P surgery on Pain control, post op management as per Operating team, bowel regimen Code(s): G89.18 - OTHER ACUTE POSTPROCEDURAL PAIN (2) S/P lumbar spinal fusion Code(s): Z98.1 - ARTHRODESIS STATUS (3) Asthma Assessment/Plan: Stable cont MDI/Nebs Code(s): J45.909 - UNSPECIFIED ASTHMA, UNCOMPLICATED (4) Anxiety Assessment/Plan: Cont home meds Code(s): F41.9 - ANXIETY DISORDER, UNSPECIFIED (5) Anemia Assessment/Plan: Anemia w/u F/U H/H Code(s): D64.9 - ANEMIA, UNSPECIFIED
--- NOTE | 2018-09-23 10:58 | PN ---
Teaching Attending Note Name of Resident: Jackie Kamara ATTENDING PHYSICIAN STATEMENT I saw and evaluated the patient. I reviewed the resident's note and discussed the case with the resident. I agree with the resident's findings and plan as documented. SUBJECTIVE: Patient seen and examined in the ICU. Sleepy but very easily arousable. Reports pain seems little better controlled today. No CP or SOB. OBJECTIVE: Intake & Output 09/20/18 09/21/18 09/22/18 09/23/18 23:59 23:59 23:59 23:59 Intake Total 2400 2400 3200 1600 Output Total 1810 1060 1810 1405 Balance 590 1340 1390 195 Weight 226 lb 238 lb 1 oz 240 lb 3.2 oz 244 lb 7 oz Last Vital Signs Temp Pulse Resp BP Pulse Ox 97.1 F L 93 H 12 115/75 100 09/23/18 08:00 09/23/18 08:00 09/23/18 08:00 09/23/18 08:00 09/23/18 08:00 Active Medications Albuterol Sulfate (Ventolin 0.083% Nebulizer Soln -) 1 amp NEB Q4H PRN PRN Reason: Dyspnea Bisacodyl (Dulcolax Suppository -) 10 mg [place] PRN PRN PRN Reason: CONSTIPATION Last Admin: 09/22/18 08:15 Dose: 10 mg Cyclobenzaprine HCl (Flexeril -) 10 mg PO TID [facility] Last Admin: 09/23/18 05:51 Dose: 10 mg Docusate Sodium (Colace -) 100 mg PO Q8H PRN PRN Reason: CONSTIPATION Last Admin: 09/22/18 06:11 Dose: 100 mg Donepezil HCl (Aricept -) 10 mg PO HS [facility] Last Admin: 09/22/18 21:25 Dose: 10 mg Duloxetine HCl (Cymbalta -) 60 mg PO BID [facility] Last Admin: 09/22/18 21:23 Dose: 60 mg Fluconazole (Diflucan -) 200 mg PO DAILY [facility] Last Admin: 09/22/18 09:18 Dose: 200 mg Gabapentin (Neurontin -) 600 mg PO TID [facility] Last Admin: 09/23/18 05:51 Dose: 600 mg Sodium Chloride (Normal Saline -) 1,000 mls @ 100 mls/hr IV ASDIR [facility] Last Admin: 09/23/18 09:01 Dose: 100 mls/hr Lorazepam (Ativan -) 2 mg PO TID [facility] Last Admin: 09/23/18 05:52 Dose: Not Given Morphine Sulfate (Ms Contin -) 30 mg PO TID [facility] Last Admin: 09/23/18 05:51 Dose: 30 mg Morphine Sulfate (Msir -) 15 mg PO Q4H PRN PRN Reason: PAIN SCALE >7 Last Admin: 09/22/18 09:58 Dose: 15 mg Ondansetron HCl (Zofran Injection) 4 mg IVPUSH Q6H PRN PRN Reason: NAUSEA AND/OR VOMITING Last Admin: 09/22/18 08:23 Dose: 4 mg Pantoprazole Sodium (Protonix -) 40 mg PO BID [facility] Last Admin: 09/22/18 21:23 Dose: 40 mg Potassium Phos/Sodium Phos (Phos-Nak Packet -) 1 packet PO BID [facility] Stop: 09/23/18 22:01 Last Admin: 09/22/18 21:23 Dose: 1 packet Senna (Senna -) 2 tab PO HS PRN PRN Reason: CONSTIPATION Last Admin: 09/22/18 21:23 Dose: 2 tab Sertraline HCl (Zoloft -) 50 mg PO DAILY [facility] Last Admin: 09/22/18 09:19 Dose: 50 mg Tizanidine HCl (Tizanidine Hcl) 4 mg PO QID [facility] Last Admin: 09/22/18 21:27 Dose: 4 mg Trazodone HCl (Desyrel -) 300 mg PO HS [facility] Last Admin: 09/22/18 21:27 Dose: 300 mg Zolpidem Tartrate (Ambien -) 10 mg PO HS PRN PRN Reason: INSOMNIA Last Admin: 09/20/18 03:34 Dose: 10 mg Gen: NAD at rest Heart: RRR Lung: decreased breath sounds at the bases Abd: soft, nontender Ext: no edema Laboratory Results - last 24 hr 09/23/18 09/23/18 05:30 05:30 WBC 8.4 RBC 2.82 L Hgb 8.0 L Hct 24.4 L D MCV 86.7 MCH 28.5 MCHC 32.9 RDW 15.4 Plt Count 285 MPV 7.5 Absolute Neuts (auto) 6.2 Neutrophils % 74.4 Lymphocytes % 13.3 D Monocytes % 10.8 H Eosinophils % 1.3 Basophils % 0.2 Nucleated RBC % 0 Sodium 141 Potassium 3.8 Chloride 105 Carbon Dioxide 32 Anion Gap 4 L BUN 7 Creatinine 0.7 Creat Clearance w eGFR > 60 Random Glucose 111 H Calcium 7.3 L Phosphorus 2.5 Magnesium 2.2 Total Bilirubin 0.3 AST 29 ALT 18 Alkaline Phosphatase 107 Total Protein 4.8 L Albumin 2.0 L ASSESSMENT AND PLAN: Lumbar Spinal Stenosis with Radiculopathy and Neurogenic Claudication s/p L3-S1 Laminectomies/PLIF/Insertion of Biomechanical Devices/Posterior Instrumentation Asthma Dopa Responsive Dystonia Anxiety/Depression - pain control - incentive spirometry - bowel regimen - PO as tolerated - DVT prophylaxis - Floor per Ortho Dr Grant
[2018-09-23] MEDS: FLUCONAZOLE 100 MG TABLET (UD) PO SCH (11:00)
[2018-09-23] MEDS: NAPH,MB-DB/K PH,MBDB POWDER PACKET PO SCH (11:00)
[2018-09-23] MEDS: DULoxetine HCL 30 MG CAPSULE.DR (FP) PO SCH ×2 (11:00→22:47)
[2018-09-23] MEDS: SERTRALINE HCL 50 MG TABLET (FP) PO SCH (11:00)
[2018-09-23] MEDS: PANTOPRAZOLE 40 MG TABLET (FP) PO SCH ×2 (11:00→22:45)
[2018-09-23] MEDS: TIZANIDINE HCL 4 MG TABLET PO SCH ×4 (11:00→22:46)
--- NOTE | 2018-09-23 11:22 | PN ---
Physical Exam: SUBJECTIVE: Patient seen and examined this morning. 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 Pain control improving. Became hypotensive yesterday and was given 2L Bolus. Denies chest pain, SOB. OBJECTIVE: Vital Signs Period Temp Pulse Resp BP Sys/Mukherjee Pulse Ox Last 24 Hr 97.1 F-98.8 F 87-110 11-18 75-129/45-75 100-100 GENERAL: A&Ox3, NAD HEAD: NCAT EYES: PERRL, EOMI EARS, NOSE, THROAT: Moist mucous membranes NECK: Supple, No JVD LUNGS: CTA b/l, No wheezes, no crackles HEART: Regular rate and rhythm, normal S1 and S2 without murmur ABDOMEN: Soft, nontender, not distended, + bowel sounds, no guarding EXTREMITIES: 2+ pulses, No calf tenderness. No peripheral edema. NEUROLOGICAL: Cranial nerves II-XII intact. Normal speech. SKIN: Warm, dry Laboratory Results - last 24 hr 09/23/18 09/23/18 05:30 05:30 WBC 8.4 RBC 2.82 L Hgb 8.0 L Hct 24.4 L D MCV 86.7 MCH 28.5 MCHC 32.9 RDW 15.4 Plt Count 285 MPV 7.5 Absolute Neuts (auto) 6.2 Neutrophils % 74.4 Lymphocytes % 13.3 D Monocytes % 10.8 H Eosinophils % 1.3 Basophils % 0.2 Nucleated RBC % 0 Sodium 141 Potassium 3.8 Chloride 105 Carbon Dioxide 32 Anion Gap 4 L BUN 7 Creatinine 0.7 Creat Clearance w eGFR > 60 Random Glucose 111 H Calcium 7.3 L Phosphorus 2.5 Magnesium 2.2 Total Bilirubin 0.3 AST 29 ALT 18 Alkaline Phosphatase 107 Total Protein 4.8 L Albumin 2.0 L Active Medications Albuterol Sulfate (Ventolin 0.083% Nebulizer Soln -) 1 amp NEB Q4H PRN PRN Reason: Dyspnea Bisacodyl (Dulcolax Suppository -) 10 mg [place] PRN PRN PRN Reason: CONSTIPATION Last Admin: 09/22/18 08:15 Dose: 10 mg Cyclobenzaprine HCl (Flexeril -) 10 mg PO TID [facility] Last Admin: 09/23/18 05:51 Dose: 10 mg Docusate Sodium (Colace -) 100 mg PO Q8H PRN PRN Reason: CONSTIPATION Last Admin: 09/22/18 06:11 Dose: 100 mg Donepezil HCl (Aricept -) 10 mg PO [facility] Last Admin: 09/22/18 21:25 Dose: 10 mg Duloxetine HCl (Cymbalta -) 60 mg PO BID [facility] Last Admin: 09/23/18 11:00 Dose: 60 mg Fluconazole (Diflucan -) 200 mg PO DAILY [facility] Last Admin: 09/23/18 11:00 Dose: 200 mg Gabapentin (Neurontin -) 600 mg PO TID [facility] Last Admin: 09/23/18 05:51 Dose: 600 mg Sodium Chloride (Normal Saline -) 1,000 mls @ 100 mls/hr IV ASDIR [facility] Last Admin: 09/23/18 09:01 Dose: 100 mls/hr Lorazepam (Ativan -) 2 mg PO TID [facility] Last Admin: 09/23/18 05:52 Dose: Not Given Morphine Sulfate (Ms Contin -) 30 mg PO TID [facility] Last Admin: 09/23/18 05:51 Dose: 30 mg Morphine Sulfate (Msir -) 15 mg PO Q4H PRN PRN Reason: PAIN SCALE >7 Last Admin: 09/22/18 09:58 Dose: 15 mg Ondansetron HCl (Zofran Injection) 4 mg IVPUSH Q6H PRN PRN Reason: NAUSEA AND/OR VOMITING Last Admin: 09/22/18 08:23 Dose: 4 mg Pantoprazole Sodium (Protonix -) 40 mg PO BID [facility] Last Admin: 09/23/18 11:00 Dose: 40 mg Potassium Phos/Sodium Phos (Phos-Nak Packet -) 1 packet PO BID [facility] Stop: 09/23/18 22:01 Last Admin: 09/23/18 11:00 Dose: 1 packet Senna (Senna -) 2 tab PO HS PRN PRN Reason: CONSTIPATION Last Admin: 09/22/18 21:23 Dose: 2 tab Sertraline HCl (Zoloft -) 50 mg PO DAILY [facility] Last Admin: 09/23/18 11:00 Dose: 50 mg Tizanidine HCl (Tizanidine Hcl) 4 mg PO QID [facility] Last Admin: 09/23/18 11:00 Dose: Not Given Trazodone HCl (Desyrel -) 300 mg PO [facility] Last Admin: 09/22/18 21:27 Dose: 300 mg Zolpidem Tartrate (Ambien -) 10 mg PO HS PRN PRN Reason: INSOMNIA Last Admin: 09/20/18 03:34 Dose: 10 mg ASSESSMENT/PLAN: 52 y/o F with PMHx of Asthma, Anxiety presents to the ICU for further monitoring s/p L3, L4, L5, S1 laminectomies; bilateral L2 laminotomies; L3-L4, L4-L5, L5-S1 discectomies; L3-L4, L4-L5, L5-S1 PLIF; insertion of biomechanical device L3-L4, L4-L5, L5-S1; L3-S1 posterior arthrodesis; L3-S1 posterior instrumentation; Intra-operative durotomy s/p successful primary repair #Neuro S/P Spinal Surgery POD #4 Hx of Diabetic Neuropathy, Dopa responsive Dystonia, Anxiety, Depression, Insomnia, Memory loss ?Dementia, Migraines -Pain control per Pain management; No NSAID's -Pain management (Dr. Burleson) Consulted, Appreciate Rec's -Continue Acetaminophen, MS contin, MS IR, Toradol -Zolpidem, Trazadone for insomnia -Donepezil for memory loss ? Dementia -Lorazepam for Dopa responsive dystonia -Duloxetine, Sertraline for depression -Cyclobenzaprine, Tinzanidine for muscle spasms -Gabapentin for neuropathic pain -Sumatriptan for Migraines -q4h B/L LE [place] checks #Cardio -No active issues -Maintaining MAP >65 without pressor support -Will continue to monitor #Pulmonary Hx of Asthma -No active issues -Incentive spirometry q15min -Supplemental O2 PRN to maintain SpO2>90% -Continue Albuterol Neb Q4H PRN, Azelastine 2 inh PRN #GI: Nausea, Vomiting, resolved Hx of Constipation -Soft diet -Continue Pantoprazole 40mg PO BID, Ondansetron 4mg IV Q6H PRN, Linaclotide 145 mcg PRN -Continue Senna, Colace, Dulcolax Suppository #MSK: -Strict bedrest x 48 hrs completed, Patient Out of bed overnight -No bending, lifting more than 5lbs, or twisting x 6 months. as per ortho #FEN: -PO Fluids -Replete lytes PRN -Soft diet #PPx -DVT: GABBY's, SCD's -GI: Pantoprazole Code Status: DNR/DNI Dispo: Transfer to Med-Surg Visit type - Emergency Visit Emergency Visit: Yes ED Registration Date: 09/19/18 Care time: The patient presented to the Emergency Department on the above date and was hospitalized for further evaluation of their emergent condition. - New Patient This patient is new to me today: No - Critical Care Critical Care patient: Yes Total Critical Care Time (in minutes): 37 Critical Care Statement: The care of this patient involved high complexity decision making to prevent further life threatening deterioration of the patient 's condition and/or to evaluate & treat vital organ system(s) failure or risk of failure.
[2018-09-23] MEDS ORDERED: DOCUSATE SODIUM 100 MG CAPSULE (FP) PO PRN (12:29)
[2018-09-23] MEDS ORDERED: SENNOSIDES 8.6MG TABLET (FP) PO PRN (12:29)
[2018-09-23] MEDS ORDERED: ONDANSETRON 4 MG/2 ML VIAL IVPUSH PRN (12:29)
[2018-09-23] MEDS ORDERED: BISACODYL 10 MG SUPP.RECT RC PRN (12:29)
[2018-09-23] MEDS: HYDROmorphone *PCA* 10MG/50ML DISP.SYRIN PCA SCH (12:51)
--- NOTE | 2018-09-23 13:33 | PROC ---
Procedure Note Procedure: Asked by Dr. Navarrete to remove patient's drain. Hemovac drain removed with distal tip intact. Clean dry dressing reapplied over drain ostium. Patient tolerated procedure well.
--- NOTE | 2018-09-23 18:59 | PN ---
Progress Note (short form) - Note Progress Note: POD #4 Better Awake Fully orientated Vitals stable Not out of bed as yet C/O incisional and enthesiopathic prox lateral thigh pain No leg pain No headache Wound dry and drain is out Neuro at baseline PLAN Pain Mx PT mobilize D/C planning
[2018-09-23] MEDS ORDERED: NAPH,MB-DB/K PH,MBDB POWDER PACKET PO SCH (22:00)
[2018-09-23] MEDS ORDERED: traZODone HCL 50 MG TABLET (FP) ONE (22:40)
[2018-09-23] MEDS: DONEPEZIL HCL 10 MG TABLET (FP) PO SCH (22:47)
[2018-09-23] MEDS: traZODone HCL 100 MG TABLET (FP) PO SCH (22:47)
[2018-09-24] MEDS: ZOLPIDEM TARTRATE 5 MG TABLET PO PRN ×2 (01:25→23:32)
[2018-09-24] MEDS: morphine SULFATE IMMEDIATE RELEASE 30 MG TAB PO PRN ×2 (02:00→18:36)
[2018-09-24] MEDS: CYCLOBENZAPRINE HCL 10 MG TABLET (FP) PO SCH ×3 (05:46→21:08)
[2018-09-24] MEDS: LORazepam 1 MG TABLET PO SCH ×3 (05:46→21:09)
[2018-09-24] MEDS: morphine SO4 SUSTAINED ACTING 30 MG TABLET.SA PO SCH ×3 (05:46→21:10)
[2018-09-24] MEDS: GABAPENTIN 300 MG CAPSULE (FP) PO SCH ×3 (05:47→21:08)
[2018-09-24 07:30] LABS: BASO % 0.3 % (0-2.0); EOS % 4.5 % (0-4.5); HEMATOCRIT 23.9 % (32.4-45.2); HEMOGLOBIN 7.9 GM/dL (10.7-15.3); MCH 28.5 pg (25.7-33.7); MCHC 33.1 g/dl (32.0-36.0); MEAN CELL VOLUME 85.9 fl (80-96); MEAN PLT VOLUME 7.7 fl (7.5-11.1); MONO % 12.2 % (3.8-10.2); PLATELET COUNT 319 K/MM3 (134-434); RBC 2.78 M/mm3 (3.60-5.2); RDW 15.7 % (11.6-15.6)
--- NOTE | 2018-09-24 08:30 | PN ---
Progress Note, Physician Chief Complaint: C/O Back pain History of Present Illness: 52 y/o F s/p L3, L4, L5, S1 laminectomies; bilateral L2 laminotomies; L3-L4, L4- L5, L5-S1 discectomies; L3-L4, L4-L5, L5-S1 PLIF; insertion of biomechanical device L3-L4, L4-L5, L5-S1; L3-S1 posterior arthrodesis; L3-S1 posterior instrumentation on 09/19/2018. - Current Medication List Current Medications: Active Medications Albuterol Sulfate (Ventolin 0.083% Nebulizer Soln -) 1 amp NEB Q4H PRN PRN Reason: Dyspnea Bisacodyl (Dulcolax Suppository -) 10 mg [place] PRN PRN PRN Reason: CONSTIPATION Cyclobenzaprine HCl (Flexeril -) 10 mg PO TID [facility] Last Admin: 09/24/18 05:46 Dose: 10 mg Docusate Sodium (Colace -) 100 mg PO Q8H PRN PRN Reason: CONSTIPATION Donepezil HCl (Aricept -) 10 mg PO HS [facility] Last Admin: 09/23/18 22:47 Dose: 10 mg Duloxetine HCl (Cymbalta -) 60 mg PO BID [facility] Last Admin: 09/23/18 22:47 Dose: 60 mg Fluconazole (Diflucan -) 200 mg PO DAILY [facility] Gabapentin (Neurontin -) 600 mg PO TID [facility] Last Admin: 09/24/18 05:47 Dose: 600 mg Sodium Chloride (Normal Saline -) 1,000 mls @ 100 mls/hr IV ASDIR [facility] Last Admin: 09/23/18 22:52 Dose: 100 mls/hr Lorazepam (Ativan -) 2 mg PO TID [facility] Last Admin: 09/24/18 05:46 Dose: 2 mg Morphine Sulfate (Msir -) 15 mg PO Q4H PRN PRN Reason: PAIN SCALE >7 Last Admin: 09/24/18 02:00 Dose: 15 mg Morphine Sulfate (Ms Contin -) 30 mg PO TID [facility] Last Admin: 09/24/18 05:46 Dose: 30 mg Ondansetron HCl (Zofran Injection) 4 mg IVPUSH Q6H PRN PRN Reason: NAUSEA AND/OR VOMITING Pantoprazole Sodium (Protonix -) 40 mg PO BID [facility] Last Admin: 09/23/18 22:45 Dose: 40 mg Senna (Senna -) 2 tab PO HS PRN PRN Reason: CONSTIPATION Sertraline HCl (Zoloft -) 50 mg PO DAILY [facility] Tizanidine HCl (Tizanidine Hcl) 4 mg PO QID [facility] Last Admin: 09/23/18 22:46 Dose: 4 mg Trazodone HCl (Desyrel -) 300 mg PO HS [facility] Last Admin: 09/23/18 22:47 Dose: 300 mg Zolpidem Tartrate (Ambien -) 10 mg PO HS PRN PRN Reason: INSOMNIA Last Admin: 09/24/18 01:25 Dose: 10 mg - Objective Vital Signs: Vital Signs Temperature 100 F H 09/24/18 05:44 Pulse Rate 93 H 09/24/18 05:44 Respiratory Rate 20 09/23/18 21:00 Blood Pressure 131/78 09/24/18 05:44 O2 Sat by Pulse Oximetry (%) 98 09/23/18 22:00 Middle aged F not in distress c/o pain HEENT: mm moist, no anemia, PERRLA EOMI NECK: No JVd No Bruit CHEST: CTA B/L CVS: S1S2 Rr no m/g/r ABD: No distention, non tender EXT: s/p Spinal surgery , Pulses +, no calf tenderness 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, no interval changes Labs: CBC, BMP 09/24/18 06:00 Problem List - Problems (1) Postoperative pain after spinal surgery Assessment/Plan: S/P surgery on Pain control, post op management as per Operating team, bowel regimen Code(s): G89.18 - OTHER ACUTE POSTPROCEDURAL PAIN (2) S/P lumbar spinal fusion Code(s): Z98.1 - ARTHRODESIS STATUS (3) Asthma Assessment/Plan: Stable cont MDI/Nebs Code(s): J45.909 - UNSPECIFIED ASTHMA, UNCOMPLICATED (4) Anxiety Assessment/Plan: Cont home meds Code(s): F41.9 - ANXIETY DISORDER, UNSPECIFIED (5) Anemia Assessment/Plan: Anemia w/u F/U H/H Code(s): D64.9 - ANEMIA, UNSPECIFIED
[2018-09-24 08:40] LABS: ALK PHOS 99 U/L (45-117); ANION GAP 7 MMOL/L (8-16); BILIRUBIN,TOTAL 0.3 mg/dL (0.2-1); BLOOD UREA NITROGEN 6 mg/dL (7-18); CALCIUM 7.4 mg/dL (8.5-10.1); CHLORIDE 105 mmol/L (98-107); CO2 29 mmol/L (21-32); CREATININE 0.7 mg/dL (0.55-1.3); GLUCOSE,RANDOM 98 mg/dL (74-106); MAGNESIUM 1.9 mg/dL (1.8-2.4); PHOSPHOROUS 2.2 mg/dL (2.5-4.9); POTASSIUM 3.6 mmol/L (3.5-5.1); SGOT/AST 21 U/L (15-37); SGPT/ALT 16 U/L (13-61); SODIUM 141 mmol/L (136-145); TOT PROT 4.8 g/dl (6.4-8.2)
[2018-09-24] MEDS ORDERED: PT OWN MED DRAWER 7, Y5N ONE (09:02)
[2018-09-24] MEDS: FLUCONAZOLE 100 MG TABLET (UD) PO SCH (09:13)
[2018-09-24] MEDS: DULoxetine HCL 30 MG CAPSULE.DR (FP) PO SCH ×2 (09:13→21:10)
[2018-09-24] MEDS: PANTOPRAZOLE 40 MG TABLET (FP) PO SCH ×2 (09:14→21:07)
[2018-09-24] MEDS: TIZANIDINE HCL 4 MG TABLET PO SCH ×4 (09:14→21:11)
[2018-09-24] MEDS: SERTRALINE HCL 50 MG TABLET (FP) PO SCH (09:14)
[2018-09-24] MEDS: SODIUM CHLORIDE 1,000 ML IV SCH ×2 (11:25→18:32)
[2018-09-24 12:12] VITALS: BMI 34.2
[2018-09-24] MEDS ORDERED: traZODone HCL 50 MG TABLET (FP) ONE (20:49)
[2018-09-24] MEDS: DONEPEZIL HCL 10 MG TABLET (FP) PO SCH (21:08)
[2018-09-24] MEDS: traZODone HCL 100 MG TABLET (FP) PO SCH (21:10)
[2018-09-25] MEDS: morphine SULFATE IMMEDIATE RELEASE 30 MG TAB PO PRN (03:02)
[2018-09-25 05:59] LABS: BASO % 0.3 % (0-2.0); EOS % 3.1 % (0-4.5); HEMOGLOBIN 7.6 GM/dL (10.7-15.3); LYMPH % 22.6 % (8-40); MCH 28.2 pg (25.7-33.7); MCHC 33.1 g/dl (32.0-36.0); MEAN CELL VOLUME 85.4 fl (80-96); MEAN PLT VOLUME 7.6 fl (7.5-11.1); MONO % 14.6 % (3.8-10.2); NEUT % 59.4 % (42.8-82.8); PLATELET COUNT 361 K/MM3 (134-434); RBC 2.69 M/mm3 (3.60-5.2); WHITE BLOOD COUNT 7.4 K/mm3 (4.0-10.0)
[2018-09-25] MEDS: GABAPENTIN 300 MG CAPSULE (FP) PO SCH ×3 (06:11→21:21)
[2018-09-25] MEDS: morphine SO4 SUSTAINED ACTING 30 MG TABLET.SA PO SCH ×3 (06:11→21:20)
[2018-09-25] MEDS: LORazepam 1 MG TABLET PO SCH ×3 (06:12→22:28)
[2018-09-25] MEDS: CYCLOBENZAPRINE HCL 10 MG TABLET (FP) PO SCH ×3 (06:12→22:28)
[2018-09-25 06:24] LABS: ANION GAP 7 MMOL/L (8-16); BLOOD UREA NITROGEN 7 mg/dL (7-18); CALCIUM 7.9 mg/dL (8.5-10.1); CHLORIDE 106 mmol/L (98-107); CO2 29 mmol/L (21-32); CREATININE 0.8 mg/dL (0.55-1.3); GLUCOSE,RANDOM 112 mg/dL (74-106); POTASSIUM 3.9 mmol/L (3.5-5.1); SODIUM 141 mmol/L (136-145)
[2018-09-25 08:09] LABS: SERUM IRON SATURATION 7 % (15-55); TOTAL IRON BINDING CAPACITY 179 ug/dL (250-450); UIBC 167 ug/dL (131-425)
[2018-09-25] MEDS ORDERED: PT OWN MED DRAWER 7, Y5N ONE (09:41)
[2018-09-25] MEDS: FLUCONAZOLE 100 MG TABLET (UD) PO SCH (09:57)
[2018-09-25] MEDS: DULoxetine HCL 30 MG CAPSULE.DR (FP) PO SCH ×2 (09:58→21:21)
[2018-09-25] MEDS: TIZANIDINE HCL 4 MG TABLET PO SCH ×4 (09:58→22:29)
[2018-09-25] MEDS: PANTOPRAZOLE 40 MG TABLET (FP) PO SCH ×2 (09:58→21:21)
[2018-09-25] MEDS: SERTRALINE HCL 50 MG TABLET (FP) PO SCH (09:58)
--- NOTE | 2018-09-25 10:26 | PN ---
Progress Note, Physician Chief Complaint: C/O Back pain History of Present Illness: 52 y/o F s/p L3, L4, L5, S1 laminectomies; bilateral L2 laminotomies; L3-L4, L4- L5, L5-S1 discectomies; L3-L4, L4-L5, L5-S1 PLIF; insertion of biomechanical device L3-L4, L4-L5, L5-S1; L3-S1 posterior arthrodesis; L3-S1 posterior instrumentation on 09/19/2018. - Current Medication List Current Medications: Active Medications Albuterol Sulfate (Ventolin 0.083% Nebulizer Soln -) 1 amp NEB Q4H PRN PRN Reason: Dyspnea Bisacodyl (Dulcolax Suppository -) 10 mg RC PRN PRN PRN Reason: CONSTIPATION Cyclobenzaprine HCl (Flexeril -) 10 mg PO TID [facility] Last Admin: 09/25/18 06:12 Dose: 10 mg Docusate Sodium (Colace -) 100 mg PO Q8H PRN PRN Reason: CONSTIPATION Donepezil HCl (Aricept -) 10 mg PO HS [facility] Last Admin: 09/24/18 21:08 Dose: 10 mg Duloxetine HCl (Cymbalta -) 60 mg PO BID [facility] Last Admin: 09/25/18 09:58 Dose: 60 mg Fluconazole (Diflucan -) 200 mg PO DAILY [facility] Last Admin: 09/25/18 09:57 Dose: 200 mg Gabapentin (Neurontin -) 600 mg PO TID [facility] Last Admin: 09/25/18 06:11 Dose: 600 mg Sodium Chloride (Normal Saline -) 1,000 mls @ 100 mls/hr IV ASDIR [facility] Last Admin: 09/24/18 18:32 Dose: Not Given Lorazepam (Ativan -) 2 mg PO TID [facility] Last Admin: 09/25/18 06:12 Dose: 2 mg Morphine Sulfate (Msir -) 15 mg PO Q4H PRN PRN Reason: PAIN SCALE >7 Last Admin: 09/25/18 03:02 Dose: 15 mg Morphine Sulfate (Ms Contin -) 30 mg PO TID [facility] Last Admin: 09/25/18 06:11 Dose: 30 mg Ondansetron HCl (Zofran Injection) 4 mg IVPUSH Q6H PRN PRN Reason: NAUSEA AND/OR VOMITING Pantoprazole Sodium (Protonix -) 40 mg PO BID [facility] Last Admin: 09/25/18 09:58 Dose: 40 mg Senna (Senna -) 2 tab PO HS PRN PRN Reason: CONSTIPATION Sertraline HCl (Zoloft -) 50 mg PO DAILY [facility] Last Admin: 09/25/18 09:58 Dose: 50 mg Tizanidine HCl (Tizanidine Hcl) 4 mg PO QID [facility] Last Admin: 09/25/18 09:58 Dose: 4 mg Trazodone HCl (Desyrel -) 300 mg PO HS [facility] Last Admin: 09/24/18 21:10 Dose: 300 mg Zolpidem Tartrate (Ambien -) 10 mg PO HS PRN PRN Reason: INSOMNIA Last Admin: 09/24/18 23:32 Dose: 10 mg - Objective Vital Signs: Vital Signs Temperature 98.4 F 09/25/18 02:00 Pulse Rate 99 H 09/25/18 02:00 Respiratory Rate 20 09/25/18 02:00 Blood Pressure 122/64 09/25/18 02:00 O2 Sat by Pulse Oximetry (%) 99 09/24/18 22:00 Middle aged F not in distress c/o pain HEENT: mm moist, no anemia, PERRLA EOMI NECK: No JVd No Bruit CHEST: CTA B/L CVS: S1S2 Rr no m/g/r ABD: No distention, non tender EXT: s/p Spinal surgery , Pulses +, no calf tenderness 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, no interval changes Labs: CBC, BMP 09/25/18 05:50 09/25/18 05:50 Problem List - Problems (1) Postoperative pain after spinal surgery Assessment/Plan: S/P surgery on Pain control, post op management as per Operating team, bowel regimen Code(s): G89.18 - OTHER ACUTE POSTPROCEDURAL PAIN (2) S/P lumbar spinal fusion Code(s): Z98.1 - ARTHRODESIS STATUS (3) Asthma Assessment/Plan: Stable cont MDI/Nebs Code(s): J45.909 - UNSPECIFIED ASTHMA, UNCOMPLICATED (4) Anxiety Assessment/Plan: Cont home meds Code(s): F41.9 - ANXIETY DISORDER, UNSPECIFIED (5) Anemia Assessment/Plan: Anemia w/u F/U H/H Code(s): D64.9 - ANEMIA, UNSPECIFIED
[2018-09-25] MEDS: FERROUS GLUCONATE 324 MG TAB (FP) PO SCH (17:59)
[2018-09-25] MEDS: SODIUM CHLORIDE 1,000 ML IV SCH (18:00)
[2018-09-25] MEDS ORDERED: traZODone HCL 50 MG TABLET (FP) ONE (21:05)
[2018-09-25] MEDS: DONEPEZIL HCL 10 MG TABLET (FP) PO SCH (21:22)
[2018-09-25] MEDS: traZODone HCL 100 MG TABLET (FP) PO SCH (22:28)
[2018-09-25] MEDS: ZOLPIDEM TARTRATE 5 MG TABLET PO PRN (23:25)
[2018-09-26] MEDS: GABAPENTIN 300 MG CAPSULE (FP) PO SCH ×3 (05:44→22:46)
[2018-09-26] MEDS: morphine SO4 SUSTAINED ACTING 30 MG TABLET.SA PO SCH ×3 (05:47→22:35)
[2018-09-26] MEDS: CYCLOBENZAPRINE HCL 10 MG TABLET (FP) PO SCH ×3 (05:47→22:46)
[2018-09-26] MEDS: LORazepam 1 MG TABLET PO SCH ×3 (05:48→22:45)
[2018-09-26 06:52] LABS: BASO % 0.4 % (0-2.0); HEMOGLOBIN 7.8 GM/dL (10.7-15.3); LYMPH % 19.9 % (8-40); MCH 28.9 pg (25.7-33.7); MCHC 34.1 g/dl (32.0-36.0); MEAN CELL VOLUME 84.8 fl (80-96); NEUT % 62.7 % (42.8-82.8); PLATELET COUNT 436 K/MM3 (134-434); RBC 2.71 M/mm3 (3.60-5.2); RDW 16.1 % (11.6-15.6); WHITE BLOOD COUNT 8.2 K/mm3 (4.0-10.0)
[2018-09-26 07:42] LABS: ANION GAP 8 MMOL/L (8-16); BLOOD UREA NITROGEN 9 mg/dL (7-18); CALCIUM 7.9 mg/dL (8.5-10.1); CHLORIDE 104 mmol/L (98-107); CO2 27 mmol/L (21-32); CREATININE 0.7 mg/dL (0.55-1.3); GLUCOSE,RANDOM 103 mg/dL (74-106); SODIUM 139 mmol/L (136-145)
[2018-09-26] MEDS: FERROUS GLUCONATE 324 MG TAB (FP) PO SCH ×3 (08:21→17:27)
[2018-09-26] MEDS ORDERED: PT OWN MED DRAWER 7, Y5N ONE ×2 (10:04→19:28)
[2018-09-26] MEDS: TIZANIDINE HCL 4 MG TABLET PO SCH ×4 (10:05→22:54)
[2018-09-26] MEDS: DULoxetine HCL 30 MG CAPSULE.DR (FP) PO SCH ×2 (10:05→22:46)
[2018-09-26] MEDS: PANTOPRAZOLE 40 MG TABLET (FP) PO SCH ×2 (10:05→22:46)
[2018-09-26] MEDS: FLUCONAZOLE 100 MG TABLET (UD) PO SCH (10:05)
[2018-09-26] MEDS: SERTRALINE HCL 50 MG TABLET (FP) PO SCH (10:05)
[2018-09-26 11:26] LABS: ANISOCYTOSIS 2+; MACROCYTOSIS 0; PLATELET ESTIMATE NORMAL
--- NOTE | 2018-09-26 14:14 | PN ---
Physical Exam: SUBJECTIVE: Patient seen and examined. She complains of pain in her back but she feels she is moving around better. OBJECTIVE: Vital Signs Period Temp Pulse Resp BP Sys/Mukherjee Pulse Ox Last 24 Hr 97.9 F-99.8 F 81-99 18-24 107-134/64-76 98-98 GENERAL: The patient is awake, alert, and fully oriented, in no acute distress. LUNGS: Breath sounds equal, clear to auscultation bilaterally, no wheezes, no crackles, no accessory muscle use. HEART: Regular rate and rhythm, S1, S2 without murmur, rub or gallop. ABDOMEN: Obese, soft, nontender, nondistended, normoactive bowel sounds, no guarding, no rebound, no hepatosplenomegaly, no masses. EXTREMITIES: 2+ pulses, warm, well-perfused, no edema. Laboratory Results - last 24 hr 09/26/18 09/26/18 05:30 05:30 WBC 8.2 RBC 2.71 L Hgb 7.8 L Hct 23.0 L MCV 84.8 MCH 28.9 MCHC 34.1 RDW 16.1 H Plt Count 436 H D MPV 8.0 Absolute Neuts (auto) 5.2 Neutrophils % 62.7 Neutrophils % (Manual) 68.6 Band Neutrophils % 2.0 Lymphocytes % 19.9 Lymphocytes % (Manual) 17.6 Monocytes % 14.0 H Monocytes % (Manual) 7 Eosinophils % 3.0 Eosinophils % (Manual) 1.9 Basophils % 0.4 Basophils % (Manual) 0.0 Myelocytes % (Man) 0 Promyelocytes % (Man) 0 Blast Cells % (Manual) 0 Nucleated RBC % 0 Metamyelocytes 1 Hypochromia 2+ Platelet Estimate Normal Polychromasia 1+ Poikilocytosis 1+ Anisocytosis 2+ Microcytosis 2+ Macrocytosis 0 Stomatocytes 1+ Sodium 139 Potassium 4.0 Chloride 104 Carbon Dioxide 27 Anion Gap 8 BUN 9 Creatinine 0.7 Creat Clearance w eGFR > 60 Random Glucose 103 Calcium 7.9 L Active Medications Generic Name Dose Route Start Last Admin Trade Name Freq PRN Reason Stop Dose Admin Albuterol Sulfate 1 amp 09/23/18 12:29 Ventolin 0.083% Nebulizer Soln - NEB Q4H PRN Dyspnea Bisacodyl 10 mg 09/23/18 12:29 Dulcolax Suppository - RC PRN PRN CONSTIPATION Cyclobenzaprine HCl 10 mg 09/23/18 14:00 09/26/18 13:55 Flexeril - PO 10 mg TID NAVYA Administration Docusate Sodium 100 mg 09/23/18 12:29 Colace - PO Q8H PRN CONSTIPATION Donepezil HCl 10 mg 09/23/18 22:00 09/25/18 21:22 Aricept - PO 10 mg HS NAVYA Administration Duloxetine HCl 60 mg 09/23/18 22:00 09/26/18 10:05 Cymbalta - PO 60 mg BID NAVYA Administration Ferrous Gluconate 324 mg 09/25/18 17:30 09/26/18 12:28 Fergon - PO 324 mg TIDCM NAVYA Administration Fluconazole 200 mg 09/24/18 10:00 09/26/18 10:05 Diflucan - PO 200 mg DAILY NAVYA Administration Gabapentin 600 mg 09/23/18 14:00 09/26/18 13:55 Neurontin - PO 600 mg TID NAVYA Administration Sodium Chloride 1,000 mls @ 100 mls/hr 09/22/18 18:30 09/25/18 18:00 Normal Saline - IV Not Given ASDIR NAVYA Lorazepam 2 mg 09/23/18 14:00 09/26/18 13:56 Ativan - PO 2 mg TID NAVYA Administration Morphine Sulfate 30 mg 09/23/18 14:00 09/26/18 13:55 Ms Contin - PO 30 mg TID NAVYA Administration Ondansetron HCl 4 mg 09/23/18 12:29 Zofran Injection IVPUSH Q6H PRN NAUSEA AND/OR VOMITING Pantoprazole Sodium 40 mg 09/23/18 22:00 09/26/18 10:05 Protonix - PO 40 mg BID NAVYA Administration Senna 2 tab 09/23/18 12:29 Senna - PO HS PRN CONSTIPATION Sertraline HCl 50 mg 09/24/18 10:00 09/26/18 10:05 Zoloft - PO 50 mg DAILY NAVYA Administration Tizanidine HCl 4 mg 09/23/18 14:00 09/26/18 10:05 Tizanidine Hcl PO 4 mg QID NAVYA Administration Trazodone HCl 300 mg 09/23/18 22:00 09/25/18 22:28 Desyrel - PO 300 mg HS NAVYA Administration ASSESSMENT/PLAN: This is a 53 year old woman with a history of asthma, chronic constipation, anxiety who was admitted for lumbar spine surgery. 1. Lumbar disc disease with lumbar spinal stenosis, neurogenic claudication, bilateral lumbar radiculopathy - s/p L3, L4, L5, S1 laminectomies; L2 laminotomy; L3-L4, L4-L5, L5-S1 discectomies; L3-L4, L4-L5, L5-S1 PLIF; insertion of biomechanical devices L3-L4 , L4-L5, L5-S1; L3-S1 posterior arthrodesis; L3-S1 posterior instrumentation; bone autograft; bone allograft; bone marrow aspiration; stem cell autograft; complex wound closure (15cm); intra-operative biplanar fluoroscopy; intra- operative neural monitoring on 09/19 - Continue physical therapy - Continue Flexeril, Zanaflex, Neurontin, MS Contin - Patient agreeable to short term rehab 2. Asthma - Stable 3. Anxiety disorder - Continue Zoloft, Cymbalta, Ativan 4. Anemia - Likely secondary to chronic illness - Hemoglobin stable - Continue ferrous sulfate 5. Chronic constipation - Restart Linzess Visit type - Emergency Visit Emergency Visit: No - New Patient This patient is new to me today: Yes Date on this admission: 09/26/18 - Critical Care Critical Care patient: No - Discharge Referral Referred to [facility] Med [facility] No
--- NOTE | 2018-09-26 19:13 | PN ---
Progress Note (short form) - Note Progress Note: POD #6 Better Awake Fully orientated Apyrexial Vitals stable Walked in the room Sat in chair for a few hrs No B/A as yet Abd soft but distended. Catheter in situ Pt resisting removal until tomorrow evening No leg pain No headache Wound dry and drain is out Neuro at baseline PLAN Pain Mx D/C catheter Cipro to sterilize the urinary tract post catheter removal PT mobilize D/C to rehab tomorrow See in office in 2 weeks
[2018-09-26] MEDS ORDERED: traZODone HCL 50 MG TABLET (FP) ONE (21:21)
[2018-09-26] MEDS: traZODone HCL 100 MG TABLET (FP) PO SCH (22:46)
[2018-09-26] MEDS: DONEPEZIL HCL 10 MG TABLET (FP) PO SCH (22:47)
[2018-09-27] MEDS ORDERED: ZOLPIDEM TARTRATE 5 MG TABLET PO ONE (00:18)
[2018-09-27] MEDS ORDERED: LORazepam 0.5 MG TABLET ONE (05:38)
[2018-09-27] MEDS: LORazepam 1 MG TABLET PO SCH ×3 (06:09→22:07)
[2018-09-27] MEDS: CYCLOBENZAPRINE HCL 10 MG TABLET (FP) PO SCH ×3 (06:09→22:07)
[2018-09-27] MEDS: morphine SO4 SUSTAINED ACTING 30 MG TABLET.SA PO SCH ×3 (06:10→22:05)
[2018-09-27] MEDS: GABAPENTIN 300 MG CAPSULE (FP) PO SCH ×3 (06:10→22:07)
[2018-09-27] MEDS: FERROUS GLUCONATE 324 MG TAB (FP) PO SCH ×3 (08:57→17:54)
[2018-09-27] MEDS: FLUCONAZOLE 100 MG TABLET (UD) PO SCH (10:10)
[2018-09-27] MEDS: PANTOPRAZOLE 40 MG TABLET (FP) PO SCH ×2 (10:10→22:06)
[2018-09-27] MEDS: SERTRALINE HCL 50 MG TABLET (FP) PO SCH (10:10)
[2018-09-27] MEDS: DULoxetine HCL 30 MG CAPSULE.DR (FP) PO SCH ×2 (10:10→22:07)
[2018-09-27] MEDS ORDERED: PT OWN MED DRAWER 7, Y5N ONE ×3 (10:29→17:54)
[2018-09-27] MEDS: TIZANIDINE HCL 4 MG TABLET PO SCH ×4 (10:31→22:48)
[2018-09-27] MEDS ORDERED: ALBUTEROL SO4 0.083% IH SOL 2.5 MG/3 ML VIAL.NEB. NEB ONE (11:47)
[2018-09-27] MEDS ORDERED: guaiFENesin 200 MG/10 ML 10 ML UNIT-DOSE CUPS PO PRN (11:47)
[2018-09-27] MEDS: ALBUTEROL SO4 0.083% IH SOL 2.5 MG/3 ML VIAL.NEB. NEB PRN ×2 (16:01→20:22)
--- NOTE | 2018-09-27 17:39 | PN ---
Physical Exam: SUBJECTIVE: Patient seen and examined at the bedside. feels well, having some coughing, but otherwise fine. OBJECTIVE: Vital Signs Period Temp Pulse Resp BP Sys/Mukherjee Pulse Ox Last 24 Hr 97.2 F-98.2 F 65-98 16-20 97-128/56-72 98-98 GENERAL: The patient is awake, alert, and fully oriented, in no acute distress. HEAD: Normal with no signs of trauma. EYES: PERRL, extraocular movements intact, sclera anicteric, conjunctiva clear. No ptosis. ENT: Ears normal, nares patent, oropharynx clear without exudates, moist mucous membranes. NECK: Trachea midline, full range of motion, supple. LUNGS: Breath sounds equal, clear to auscultation bilaterally HEART: Regular rate and rhythm ABDOMEN: Soft, nontender, nondistended, normoactive bowel sounds, no guarding, no rebound, no hepatosplenomegaly, no masses. EXTREMITIES: no edema. NEUROLOGICAL: Normal speech, gait not observed. PSYCH: Normal mood, normal affect. SKIN: back dressing s/p surgery Active Medications Generic Name Dose Route Start Last Admin Trade Name Freq PRN Reason Stop Dose Admin Albuterol Sulfate 1 amp 09/23/18 12:29 09/27/18 16:01 Ventolin 0.083% Nebulizer Soln - NEB 1 amp Q4H PRN Administration Dyspnea Bisacodyl 10 mg 09/23/18 12:29 Dulcolax Suppository - RC PRN PRN CONSTIPATION Cyclobenzaprine HCl 10 mg 09/23/18 14:00 09/27/18 13:57 Flexeril - PO 10 mg TID NAVYA Administration Docusate Sodium 100 mg 09/23/18 12:29 Colace - PO Q8H PRN CONSTIPATION Donepezil HCl 10 mg 09/23/18 22:00 09/26/18 22:47 Aricept - PO 10 mg HS NAVYA Administration Duloxetine HCl 60 mg 09/23/18 22:00 09/27/18 10:10 Cymbalta - PO 60 mg BID NAVYA Administration Ferrous Gluconate 324 mg 09/25/18 17:30 09/27/18 13:57 Fergon - PO 324 mg TIDCM NAVYA Administration Fluconazole 200 mg 09/24/18 10:00 09/27/18 10:10 Diflucan - PO 200 mg DAILY NAVYA Administration Gabapentin 600 mg 09/23/18 14:00 09/27/18 13:57 Neurontin - PO 600 mg TID NAVYA Administration Guaifenesin 10 ml 09/27/18 11:47 Robitussin - PO Q8H PRN COUGH Sodium Chloride 1,000 mls @ 100 mls/hr 09/22/18 18:30 09/25/18 18:00 Normal Saline - IV Not Given ASDIR NAVYA Lorazepam 2 mg 09/23/18 14:00 09/27/18 13:58 Ativan - PO 2 mg TID NAVYA Administration Morphine Sulfate 30 mg 09/23/18 14:00 09/27/18 13:57 Ms Contin - PO 30 mg TID NAVYA Administration Non-Formulary Medication 2 each 09/27/18 07:00 Patient's Own Med PO AM NAVYA Ondansetron HCl 4 mg 09/23/18 12:29 Zofran Injection IVPUSH Q6H PRN NAUSEA AND/OR VOMITING Pantoprazole Sodium 40 mg 09/23/18 22:00 09/27/18 10:10 Protonix - PO 40 mg BID NAVYA Administration Senna 2 tab 09/23/18 12:29 Senna - PO HS PRN CONSTIPATION Sertraline HCl 50 mg 09/24/18 10:00 09/27/18 10:10 Zoloft - PO 50 mg DAILY NAVYA Administration Tizanidine HCl 4 mg 09/23/18 14:00 09/27/18 14:00 Tizanidine Hcl PO 4 mg QID NAVYA Administration Trazodone HCl 300 mg 09/23/18 22:00 09/26/18 22:46 Desyrel - PO 300 mg HS NAVYA Administration ASSESSMENT/PLAN: Patient is a 53 year old female with a significant past medical history of asthma, chronic constipation, anxiety who was admitted for lumbar spine surgery. Surgery: Patient is s/p Lumbar disc disease with lumbar spinal stenosis, neurogenic claudication, bilateral lumbar radiculopathy s/p L3, L4, L5, S1 laminectomies; L2 laminotomy; L3-L4, L4-L5, L5-S1 discectomies; L3-L4, L4-L5, L5-S1 PLIF; insertion of biomechanical devices L3-L4 , L4-L5, L5-S1; L3-S1 posterior arthrodesis; L3-S1 posterior instrumentation; bone autograft; bone allograft; bone marrow aspiration; stem cell autograft; complex wound closure (15cm); intra-operative biplanar fluoroscopy; intra- operative neural monitoring on 09/19 Back Surgery: Patient for physical therapy placement Continue Flexeril, Zanaflex, Neurontin, MS Contin Bowel regimen pain management Physical therapy Pulm: Asthma, stable On duonebs Psyche: Anxiety disorder On Zoloft, Cymbalta, Ativan Heme: Anemia. low/stable. repeat cbc in a.m. Continue iron therapy fen tolerating po monitor electrolytes low salt diet prophy full code Visit type - Emergency Visit Emergency Visit: Yes ED Registration Date: 09/19/18 Care time: The patient presented to the Emergency Department on the above date and was hospitalized for further evaluation of their emergent condition. - New Patient This patient is new to me today: Yes Date on this admission: 09/27/18 - Critical Care Critical Care patient: No - Discharge Referral Referred to [facility] Med [facility].: No
[2018-09-27] MEDS ORDERED: traZODone HCL 50 MG TABLET (FP) ONE (22:00)
[2018-09-27] MEDS: traZODone HCL 100 MG TABLET (FP) PO SCH (22:06)
[2018-09-27] MEDS: DONEPEZIL HCL 10 MG TABLET (FP) PO SCH (22:07)
[2018-09-28] MEDS: morphine SO4 SUSTAINED ACTING 30 MG TABLET.SA PO SCH ×3 (05:41→21:20)
[2018-09-28] MEDS: CYCLOBENZAPRINE HCL 10 MG TABLET (FP) PO SCH ×3 (05:41→21:18)
[2018-09-28] MEDS: LORazepam 1 MG TABLET PO SCH ×3 (05:43→21:22)
[2018-09-28] MEDS: GABAPENTIN 300 MG CAPSULE (FP) PO SCH ×3 (05:43→21:19)
[2018-09-28] MEDS: FERROUS GLUCONATE 324 MG TAB (FP) PO SCH ×3 (08:15→17:55)
[2018-09-28] MEDS: DULoxetine HCL 30 MG CAPSULE.DR (FP) PO SCH ×2 (09:44→21:19)
[2018-09-28] MEDS: FLUCONAZOLE 100 MG TABLET (UD) PO SCH (09:45)
[2018-09-28] MEDS: PANTOPRAZOLE 40 MG TABLET (FP) PO SCH ×2 (09:45→21:19)
[2018-09-28] MEDS: SERTRALINE HCL 50 MG TABLET (FP) PO SCH (09:45)
[2018-09-28] MEDS ORDERED: PT OWN MED DRAWER 7, Y5N ONE ×3 (10:00→17:53)
[2018-09-28] MEDS: TIZANIDINE HCL 4 MG TABLET PO SCH ×4 (10:00→21:23)
--- NOTE | 2018-09-28 10:56 | PN ---
Physical Exam: SUBJECTIVE: Patient seen and examined, denies pain or discomfort. reports constipation x 2 days OBJECTIVE: patient for discharge to rehab Vital Signs Period Temp Pulse Resp BP Sys/Mukherjee Pulse Ox Last 24 Hr 97.7 F-98.8 F 65-93 16-20 106-145/51-74 98-98 GENERAL: The patient is awake, alert, and fully oriented, in no acute distress. HEAD: Normal with no signs of trauma. EYES: PERRL, extraocular movements intact, sclera anicteric, conjunctiva clear. No ptosis. ENT: Ears normal, nares patent, oropharynx clear without exudates, moist mucous membranes. NECK: Trachea midline, full range of motion, supple. LUNGS: Breath sounds equal, clear to auscultation bilaterally HEART: Regular rate and rhythm ABDOMEN: Soft, nontender, nondistended, normoactive bowel sounds, no guarding, no rebound, no hepatosplenomegaly, no masses. EXTREMITIES: no edema. NEUROLOGICAL: Normal speech, gait not observed. PSYCH: Normal mood, normal affect. SKIN: back dressing s/p surgery Active Medications Generic Name Dose Route Start Last Admin Trade Name Freq PRN Reason Stop Dose Admin Albuterol Sulfate 1 amp 09/23/18 12:29 09/27/18 20:22 Ventolin 0.083% Nebulizer Soln - NEB 1 amp Q4H PRN Administration Dyspnea Bisacodyl 10 mg 09/23/18 12:29 Dulcolax Suppository - RC PRN PRN CONSTIPATION Cyclobenzaprine HCl 10 mg 09/23/18 14:00 09/28/18 05:41 Flexeril - PO 10 mg TID NAVYA Administration Docusate Sodium 100 mg 09/23/18 12:29 09/28/18 09:56 Colace - PO 100 mg Q8H PRN Administration CONSTIPATION Donepezil HCl 10 mg 09/23/18 22:00 09/27/18 22:07 Aricept - PO 10 mg HS NAVYA Administration Duloxetine HCl 60 mg 09/23/18 22:00 09/28/18 09:44 Cymbalta - PO 60 mg BID NAVYA Administration Ferrous Gluconate 324 mg 09/25/18 17:30 09/28/18 08:15 Fergon - PO 324 mg TIDCM NAVYA Administration Fluconazole 200 mg 09/24/18 10:00 09/28/18 09:45 Diflucan - PO 200 mg DAILY NAVYA Administration Gabapentin 600 mg 09/23/18 14:00 09/28/18 05:43 Neurontin - PO 600 mg TID NAVYA Administration Guaifenesin 10 ml 09/27/18 11:47 Robitussin - PO Q8H PRN COUGH Sodium Chloride 1,000 mls @ 100 mls/hr 09/22/18 18:30 09/25/18 18:00 Normal Saline - IV Not Given ASDIR NAVYA Lorazepam 2 mg 09/23/18 14:00 09/28/18 05:43 Ativan - PO 2 mg TID NAVYA Administration Morphine Sulfate 30 mg 09/23/18 14:00 09/28/18 05:41 Ms Contin - PO 30 mg TID NAVYA Administration Non-Formulary Medication 2 each 09/27/18 07:00 Patient's Own Med PO AM NAVYA Ondansetron HCl 4 mg 09/23/18 12:29 Zofran Injection IVPUSH Q6H PRN NAUSEA AND/OR VOMITING Pantoprazole Sodium 40 mg 09/23/18 22:00 09/28/18 09:45 Protonix - PO 40 mg BID NAVYA Administration Polyethylene Glycol 17 gm 09/28/18 10:55 Miralax (For Daily Use) - PO 09/28/18 10:56 ONCE ONE Senna 2 tab 09/23/18 12:29 Senna - PO HS PRN CONSTIPATION Sertraline HCl 50 mg 09/24/18 10:00 09/28/18 09:45 Zoloft - PO 50 mg DAILY NAVYA Administration Tizanidine HCl 4 mg 09/23/18 14:00 09/28/18 10:00 Tizanidine Hcl PO 4 mg QID NAVYA Administration Trazodone HCl 300 mg 09/23/18 22:00 09/27/18 22:06 Desyrel - PO 300 mg HS NAVYA Administration ASSESSMENT/PLAN: Patient is a 53 year old female with a significant past medical history of asthma, chronic constipation, anxiety who was admitted for lumbar spine surgery. Surgery: Patient is s/p Lumbar disc disease with lumbar spinal stenosis, neurogenic claudication, bilateral lumbar radiculopathy s/p L3, L4, L5, S1 laminectomies; L2 laminotomy; L3-L4, L4-L5, L5-S1 discectomies; L3-L4, L4-L5, L5-S1 PLIF; insertion of biomechanical devices L3-L4 , L4-L5, L5-S1; L3-S1 posterior arthrodesis; L3-S1 posterior instrumentation; bone autograft; bone allograft; bone marrow aspiration; stem cell autograft; complex wound closure (15cm); intra-operative biplanar fluoroscopy; intra- operative neural monitoring on 09/19 Back Surgery: Patient for physical therapy placement Continue Flexeril, Zanaflex, Neurontin, MS Contin Bowel regimen pain management Physical therapy Pulm: Asthma, stable On duonebs Psyche: Anxiety disorder On Zoloft, Cymbalta, Ativan Heme: Anemia. low/stable. repeat cbc in a.m. Continue iron therapy fen tolerating po monitor electrolytes low salt diet prophy dnr/dni. stable for discharge to rehab. Visit type - Emergency Visit Emergency Visit: Yes ED Registration Date: 09/19/18 Care time: The patient presented to the Emergency Department on the above date and was hospitalized for further evaluation of their emergent condition. - New Patient This patient is new to me today: No - Critical Care Critical Care patient: No - Discharge Referral Referred to [facility] Med [facility]C.: No
[2018-09-28] MEDS ORDERED: POLYETHYLENE GLYCOL 3350 119 GM BTL PO ONE (11:15)
[2018-09-28] MEDS ORDERED: traZODone HCL 50 MG TABLET (FP) ONE (21:11)
[2018-09-28] MEDS: traZODone HCL 100 MG TABLET (FP) PO SCH (21:21)
[2018-09-28] MEDS: DONEPEZIL HCL 10 MG TABLET (FP) PO SCH (21:22)
[2018-09-29] MEDS: morphine SO4 SUSTAINED ACTING 30 MG TABLET.SA PO SCH ×2 (05:49→14:54)
[2018-09-29] MEDS: GABAPENTIN 300 MG CAPSULE (FP) PO SCH ×2 (05:49→14:54)
[2018-09-29] MEDS: CYCLOBENZAPRINE HCL 10 MG TABLET (FP) PO SCH ×2 (05:49→14:54)
[2018-09-29] MEDS: LORazepam 1 MG TABLET PO SCH ×2 (05:50→14:53)
[2018-09-29 07:51] LABS: BASO % 0.5 % (0-2.0); EOS % 4.1 % (0-4.5); HEMATOCRIT 23.8 % (32.4-45.2); HEMOGLOBIN 7.8 GM/dL (10.7-15.3); LYMPH % 21.1 % (8-40); MCH 28.1 pg (25.7-33.7); MCHC 32.7 g/dl (32.0-36.0); MEAN CELL VOLUME 86.1 fl (80-96); MEAN PLT VOLUME 7.5 fl (7.5-11.1); MONO % 10.7 % (3.8-10.2); NEUT % 63.6 % (42.8-82.8); PLATELET COUNT 632 K/MM3 (134-434); RBC 2.76 M/mm3 (3.60-5.2); RDW 16.5 % (11.6-15.6); WHITE BLOOD COUNT 7.5 K/mm3 (4.0-10.0)
[2018-09-29] MEDS: FERROUS GLUCONATE 324 MG TAB (FP) PO SCH ×2 (08:53→12:42)
[2018-09-29 09:04] LABS: ALBUMIN 2.4 g/dl (3.4-5.0); ALK PHOS 101 U/L (45-117); ANION GAP 5 MMOL/L (8-16); BILIRUBIN,TOTAL 0.2 mg/dL (0.2-1); BLOOD UREA NITROGEN 9 mg/dL (7-18); CALCIUM 8.4 mg/dL (8.5-10.1); CHLORIDE 105 mmol/L (98-107); CO2 31 mmol/L (21-32); CREATININE 0.9 mg/dL (0.55-1.3); GLUCOSE,RANDOM 94 mg/dL (74-106); POTASSIUM 4.8 mmol/L (3.5-5.1); SGOT/AST 10 U/L (15-37); SGPT/ALT 15 U/L (13-61); SODIUM 141 mmol/L (136-145); TOT PROT 5.6 g/dl (6.4-8.2)
[2018-09-29] MEDS ORDERED: BISACODYL 10 MG SUPP.RECT PR ONE (10:33)
[2018-09-29] MEDS ORDERED: ALBUTEROL SO4 2.5/IPRATROPIUM 0.5 INH SOL 3 ML VIAL.NEB. NEB ONE (10:33)
[2018-09-29] MEDS ORDERED: BISACODYL 10 MG SUPP.RECT RC ONE (10:33)
[2018-09-29] MEDS: SODIUM CHLORIDE 1,000 ML IV SCH (10:49)
[2018-09-29] MEDS: DULoxetine HCL 30 MG CAPSULE.DR (FP) PO SCH (10:53)
[2018-09-29] MEDS: FLUCONAZOLE 100 MG TABLET (UD) PO SCH (10:54)
[2018-09-29] MEDS: TIZANIDINE HCL 4 MG TABLET PO SCH ×2 (10:54→14:55)
[2018-09-29] MEDS: SERTRALINE HCL 50 MG TABLET (FP) PO SCH (10:54)
[2018-09-29] MEDS: PANTOPRAZOLE 40 MG TABLET (FP) PO SCH (10:54)
[2018-09-29 12:17] LABS: ANISOCYTOSIS 1+; MACROCYTOSIS 0; PLATELET ESTIMATE INCREASED
[2018-09-29] MEDS ORDERED: POLYETHYLENE GLYCOL 3350 119 GM BTL PO ONE (13:54)
[2018-09-29 15:00] VITALS: BP 152/57; PULSE 79; TEMP 98.4
--- NOTE | 2018-09-29 16:34 | DS ---
Physical Exam: SUBJECTIVE: Patient seen and examined at the bedside. in no acute distress. feels well, had BM after being constipated for few days. Ready for rehab and willing to go locally. Pain is better controlled. OBJECTIVE: Vital Signs Period Temp Pulse Resp BP Sys/Mukherjee Pulse Ox Last 24 Hr 97.6 F-98.5 F 74-110 16-20 112-152/57-70 99-100 PHYSICAL EXAM GENERAL: The patient is awake, alert, and fully oriented, in no acute distress. HEAD: Normal with no signs of trauma. EYES: PERRL, extraocular movements intact, sclera anicteric, conjunctiva clear. No ptosis. ENT: Ears normal, nares patent, oropharynx clear without exudates, moist mucous membranes. NECK: Trachea midline, full range of motion, supple. LUNGS: Breath sounds equal, clear to auscultation bilaterally HEART: Regular rate and rhythm ABDOMEN: Soft, nontender, nondistended, normoactive bowel sounds, no guarding, no rebound, no hepatosplenomegaly, no masses. EXTREMITIES: no edema. NEUROLOGICAL: Normal speech, gait not observed. PSYCH: Normal mood, normal affect. SKIN: back dressing s/p surgery LABS Laboratory Results - last 24 hr 09/29/18 09/29/18 06:30 06:30 WBC 7.5 RBC 2.76 L Hgb 7.8 L Hct 23.8 L MCV 86.1 MCH 28.1 MCHC 32.7 RDW 16.5 H Plt Count 632 H D MPV 7.5 Absolute Neuts (auto) 4.8 Neutrophils % 63.6 Neutrophils % (Manual) 64.1 Band Neutrophils % 0.0 Lymphocytes % 21.1 Lymphocytes % (Manual) 20.4 Monocytes % 10.7 H Monocytes % (Manual) 9 Eosinophils % 4.1 Eosinophils % (Manual) 4.8 H D Basophils % 0.5 Basophils % (Manual) 1.0 D Myelocytes % (Man) 0 Promyelocytes % (Man) 0 Blast Cells % (Manual) 0 Nucleated RBC % 0 Metamyelocytes 1 Hypochromia 1+ Platelet Estimate Increased Polychromasia 2+ Poikilocytosis 0 Anisocytosis 1+ Microcytosis 1+ Macrocytosis 0 Sodium 141 Potassium 4.8 Chloride 105 Carbon Dioxide 31 Anion Gap 5 L BUN 9 Creatinine 0.9 Creat Clearance w eGFR > 60 Random Glucose 94 Calcium 8.4 L Total Bilirubin 0.2 AST 10 L ALT 15 Alkaline Phosphatase 101 Total Protein 5.6 L Albumin 2.4 L Date of Admission:09/19/18 Date of Discharge: 09/29/18 HOSPITAL COURSE: Patient is a 53 year old female with a significant past medical history of asthma, chronic constipation, anxiety who was admitted for lumbar spine surgery. Surgery: Patient is s/p Lumbar disc disease with lumbar spinal stenosis, neurogenic claudication, bilateral lumbar radiculopathy s/p L3, L4, L5, S1 laminectomies; L2 laminotomy; L3-L4, L4-L5, L5-S1 discectomies; L3-L4, L4-L5, L5-S1 PLIF; insertion of biomechanical devices L3-L4 , L4-L5, L5-S1; L3-S1 posterior arthrodesis; L3-S1 posterior instrumentation; bone autograft; bone allograft; bone marrow aspiration; stem cell autograft; complex wound closure (15cm); intra-operative biplanar fluoroscopy; intra- operative neural monitoring on 09/19 Back Surgery: Patient for physical therapy placement as she has been cleared by Dr. Navarrete. Continue Flexeril, Zanaflex, Neurontin, MS Contin. Pain is well controlled. Bowel regimen with miralax, dulcolax, colace while on the pain medications Stable for discharge with surgery follow up. Pulm: Asthma, stable On duonebs Psyche: Anxiety disorder On Zoloft, Cymbalta, Ativan Heme: Anemia. low/stable. Patient has refused iron therapy. stressed importance of taking her iron therapy Please repeat CBC outpatient and monitor Hmg stable and has not dropped below 7. Continue iron therapy as ordered. DISCHARGE: Discharge to rehab for continuation of physical therapy Dressing changes to be done by surgery Minutes to complete discharge: 60 Discharge Summary Reason For Visit: SPINAL STENOSIS Current Active Problems Anemia (Acute) Anxiety (Acute) Asthma (Acute) Postoperative pain after spinal surgery (Acute) S/P lumbar spinal fusion (Acute) Condition: Improved - Instructions Diet, Activity, Other Instructions: Mrs Irene: You will be discharged to rehab today for physical therapy. Surgery: on 09/19/2018: s/p L3, L4, L5, S1 laminectomies; L2 laminotomy; L3-L4, L4-L5, L5-S1 discectomies; L3-L4, L4-L5, L5-S1 PLIF; insertion of biomechanical devices L3-L4 , L4-L5, L5-S1; L3-S1 posterior arthrodesis; L3-S1 posterior instrumentation; bone autograft; bone allograft; bone marrow aspiration; stem cell autograft; complex wound closure (15cm); intra-operative biplanar fluoroscopy; intra- operative neural monitoring Back Surgery: continue physical therapy as tolerated and as outlined by Dr. Navarrete Continue Flexeril, Zanaflex, Neurontin, MS Contin Bowel regimen to continue daily. pain management with oxycodone. Dressing changes per Dr. Navarrete. Pulm: Asthma, continue on the duonebs. Heme: Anemia. low/stable. On iron therapy, but has not taken due to constipation. Continue iron therapy now that she is no longer constipated. Repeat CBC. Follow up: Please call Dr. Navarrete office for a follow up appointment. His information is enclosed. Activity: No heavy lifting, bending or twisting. Keep dressing clean & dry Referrals: Shane Navarrete MD [Staff Physician] - Disposition: [facility]ILITY - Home Medications Comprehensive Discharge Medication List: Ambulatory Orders Albuterol 0.083% Nebulizer Rachelle [Ventolin 0.083% Nebulizer Soln -] 1 amp .ROUTE PRN PRN 09/16/18 Azelastine HCl [Astepro] 2 inh IH PRN PRN 09/16/18 Cyanocobalamin (Vitamin B-12) [Vitamin B-12] 1,000 mcg SCJ ASDIR 09/16/18 Cyclobenzaprine HCl [Amrix] 30 mg PO DAILY 09/16/18 Donepezil HCl [Aricept] 23 mg PO HS 09/16/18 Duloxetine HCl [Cymbalta] 60 mg PO BID 09/16/18 Fluconazole 200 mg PO PRN PRN 09/16/18 Gabapentin 600 mg PO TID 09/16/18 LORazepam [Ativan] 2 mg PO TID 09/16/18 Linaclotide [Linzess] 145 mcg PO PRN PRN 09/16/18 Omeprazole 40 mg PO BID 09/16/18 Oxycodone HCl/Acetaminophen [Percocet 10-325 mg Tablet] 1 tab PO PRN PRN Oxycodone Myristate [Xtampza ER] 18 mg PO TID 09/16/18 Promethazine HCl [Phenergan] 12.5 mg IJ PRN PRN 09/16/18 Sertraline HCl 50 mg PO DAILY 09/16/18 Tizanidine HCl 4 mg PO QID 09/16/18 Trazodone HCl 300 mg PO HS 09/16/18 Zolpidem Tartrate [Ambien] 10 mg PO PRN PRN 09/16/18 Bisacodyl Suppository [Dulcolax Suppository -] 10 mg RC PRN PRN supp.rect 09/29 Docusate Sodium [Colace -] 100 mg PO Q8H PRN capsule 09/29/18 Ferrous Gluconate [Fergon -] 324 mg PO TIDCM tab 09/29/18 Sennosides [Senna -] 2 tab PO HS PRN tablet 09/29/18 This patient is new to me today: Yes Date on this admission: 09/29/18 Emergency Visit: No Critical Care patient: No - Discharge Referral Referred to [facility] No
[2018-09-30] MEDS ORDERED: LINZESS 145 MCG PO SCH (07:00)
== END 2018-09-29 17:10 | DRG 457 ==
LOC: JSAMEDAYSX 06:23 → JICU 16:46 → J8W 09-23 12:04
PROVIDERS: ADMIT Orthopaedic Surgery Orthopaedic Surgery of the Spine; ATTEND Nurse Practitioner Family
PROC: 0SG307J Fusion of Lumbosacral Joint with Autologous Tissue Substitute, Posterior Approach, Anterior Column, Open Approach (ICD-10-PCS; 2018-09-19)
PROC: 00QT0ZZ Repair Spinal Meninges, Open Approach (ICD-10-PCS; 2018-09-19)
PROC: 0QB00ZZ Excision of Lumbar Vertebra, Open Approach (ICD-10-PCS; 2018-09-19)
PROC: 0QB10ZZ Excision of Sacrum, Open Approach (ICD-10-PCS; 2018-09-19)
PROC: 07DR0ZZ Extraction of Iliac Bone Marrow, Open Approach (ICD-10-PCS; 2018-09-19)
PROC: B01BZZZ Fluoroscopy of Spinal Cord (ICD-10-PCS; 2018-09-19)
PROC: 4A1004G Monitoring of Central Nervous Electrical Activity, Intraoperative, Open Approach (ICD-10-PCS; 2018-09-19)
PROC: 0SG10AJ Fusion of 2 or more Lumbar Vertebral Joints with Interbody Fusion Device, Posterior Approach, Anterior Column, Open Approach (ICD-10-PCS; principal; 2018-09-19 08:00)
DX: M41.86 Other forms of scoliosis, lumbar region (principal); G24.8 Other dystonia; G97.41 Accidental puncture or laceration of dura during a procedure; M51.17 Intervertebral disc disorders with radiculopathy, lumbosacral region; M51.16 Intervertebral disc disorders with radiculopathy, lumbar region; M48.07 Spinal stenosis, lumbosacral region; E88.2 Lipomatosis, not elsewhere classified; D50.0 Iron deficiency anemia secondary to blood loss (chronic); J45.909 Unspecified asthma, uncomplicated; G89.18 Other acute postprocedural pain; K59.00 Constipation, unspecified; R11.2 Nausea with vomiting, unspecified; F41.8 Other specified anxiety disorders; M53.2X6 Spinal instabilities, lumbar region; Y83.9 Surgical procedure, unspecified as the cause of abnormal reaction of the patient, or of later complication, without mention of misadventure at the time of the procedure
CPT/HCPCS: 36415; 76000-TC-FY; 80048; 80053; 82728; 83540; 83550; 83735; 84100; 85025; 86850; 86900; 86901; 88304-TC; 94640; 97116-GP; 97162-GP; J0131; J1644; J7030

== ENCOUNTER 2021-05-19 04:25 | Inpatient (IN) | payer OTHER, MEDICARE ==
[2021-05-19] MEDS ORDERED: BUPIVACAINE LIPOSOME/PF (EXPAREL) 266 MG/20 ML VIAL ONE (07:18)
[2021-05-19] MEDS ORDERED: HEPARIN NA (PORCINE) 5,000 UNITS/ML 1ML VIAL ONE (07:18)
[2021-05-19] MEDS ORDERED: BENZOIN/ALOE VERA/STORAX/TOLU 58 ML BOTTLE ONE (07:19)
[2021-05-19] MEDS ORDERED: BUPIVACAINE HCL/PF 0.25% (2.5MG/ML) 10 ML VIAL ONE (07:19)
[2021-05-19] MEDS ORDERED: THROMBIN (BOVINE) 5,000 UNIT VIAL TP ONE ×2 (07:19→10:07)
[2021-05-19] MEDS ORDERED: GENTAMICIN SO4 80 MG/2 ML VIAL ONE ×2 (07:30→07:37)
[2021-05-19] MEDS ORDERED: LIDOCAINE 1%/EPI 1:100000 (20 ML MULTI DOSE VIAL) ONE (07:38)
[2021-05-19] MEDS ORDERED: ceFAZolin SODIUM 1 GM VIAL IVPB ONE (09:15)
[2021-05-19] MEDS ORDERED: HYDROGEN PEROXIDE 473 ML PO ONE (10:09)
[2021-05-19] MEDS ORDERED: BUPIVACAINE LIPOSOME/PF (EXPAREL) 266 MG/20 ML VIAL IJ ONE (11:02)
[2021-05-19] MEDS ORDERED: BUPIVACAINE HCL/PF 0.25% (2.5MG/ML) 10 ML VIAL IJ ONE (11:04)
[2021-05-19] MEDS ORDERED: BACITRACIN 15 GM TUBE TOPICAL OINTMENT ONE (11:16)
[2021-05-19] MEDS ORDERED: SENNOSIDES 8.6MG TABLET (FP) PO PRN (12:14)
[2021-05-19] MEDS ORDERED: AZELASTINE HCL IH PRN (12:14)
[2021-05-19] MEDS ORDERED: DOCUSATE SODIUM 100 MG CAPSULE (FP) PO PRN (12:14)
[2021-05-19] MEDS ORDERED: [UNRECOGNIZED DRUG - OTHER] IH PRN (12:14)
[2021-05-19] MEDS ORDERED: PROMETHAZINE HCL 25 MG TABLET PO SCH (12:15)
[2021-05-19] MEDS ORDERED: SUMATRIPTAN SUCCINATE 6 MG/0.5 ML VIAL SQ SCH (12:15)
[2021-05-19] MEDS ORDERED: IRON SUCROSE IV SCH (12:15)
[2021-05-19] MEDS ORDERED: ONDANSETRON 4 MG/2 ML VIAL IVPUSH PRN (12:16)
[2021-05-19] MEDS ORDERED: ACETAMINOPHEN 1000 MG/100 ML VIAL (NON FORMULARY) IVPB PRN (12:16)
[2021-05-19] MEDS ORDERED: HYDROmorphone HCL CARPU-JECT 2 MG/1 ML DISP.SYRIN SQ PRN (12:16)
[2021-05-19] MEDS ORDERED: HYDROmorphone HCl 2 MG/ML VIAL IVPUSH ONE ×4 (14:28→15:13)
[2021-05-19] MEDS ORDERED: HYDROmorphone HCl 2 MG/ML VIAL ONE (14:28)
[2021-05-19] MEDS ORDERED: HYDROmorphone *PCA* 10MG/50ML DISP.SYRIN ONE (15:15)
[2021-05-19] MEDS: HYDROmorphone *PCA* 10MG/50ML DISP.SYRIN PCA SCH ×3 (15:30→21:15)
[2021-05-19] MEDS ORDERED: diazePAM CARPU-JECT 10 MG/2 ML DISP.SYRIN ONE (16:59)
[2021-05-19] MEDS ORDERED: diazePAM CARPU-JECT 10 MG/2 ML DISP.SYRIN IVPUSH ONE (17:00)
[2021-05-19] MEDS ORDERED: CEFAZOLIN 2 GM in DEXTROSE 5%-WATER - 100 ML IVPB SCH (18:00)
[2021-05-19] MEDS: LACTATED RINGERS SOLUTION 1,000 ML IV SCH ×2 (19:53→23:49)
[2021-05-19] MEDS: CEFAZOLIN 2 GM in DEXTROSE 5%-WATER - 100 ML IVPB SCH ×2 (19:57→22:27)
[2021-05-19] MEDS: LORazepam 1 MG TABLET PO SCH ×3 (19:57→22:30)
[2021-05-19] MEDS: CYCLOBENZAPRINE HCL 10 MG TABLET (FP) PO SCH ×2 (19:57→22:33)
[2021-05-19] MEDS: TIZANIDINE HCL 4 MG TABLET PO SCH ×2 (19:58→22:45)
[2021-05-19] MEDS ORDERED: PCA PUMP NR ONE (21:09)
[2021-05-19] MEDS ORDERED: ZOLPIDEM TARTRATE 5 MG TABLET PO PRN (22:00)
[2021-05-19] MEDS ORDERED: OXYCODONE MYRISTATE 18 MG PO SCH (22:00)
[2021-05-19] MEDS ORDERED: CYCLOBENZAPRINE HCL 15 MG PO SCH (22:00)
[2021-05-19] MEDS ORDERED: DONEPEZIL HCL 23 MG PO SCH (22:00)
[2021-05-19] MEDS: traZODone HCL 100 MG TABLET (FP) PO SCH (22:31)
[2021-05-19] MEDS: GABAPENTIN 300 MG CAPSULE PO SCH (22:32)
[2021-05-19] MEDS: DULoxetine HCL 30 MG CAPSULE.DR PO SCH (22:32)
[2021-05-19] MEDS: diazePAM CARPU-JECT 10 MG/2 ML DISP.SYRIN IVPUSH SCH (22:33)
[2021-05-19] MEDS: PANTOPRAZOLE 40 MG TABLET PO SCH (22:33)
[2021-05-20 00:01] VITALS: BMI 33.0
[2021-05-20] MEDS: CEFAZOLIN 2 GM in DEXTROSE 5%-WATER - 100 ML IVPB SCH (02:01)
[2021-05-20] MEDS: CYCLOBENZAPRINE HCL 10 MG TABLET (FP) PO SCH ×3 (06:24→21:08)
[2021-05-20] MEDS ORDERED: oxyCODONE HCL 5 MG TABLET PO PRN (08:13)
[2021-05-20] MEDS ORDERED: PCA PUMP NR ONE (08:58)
[2021-05-20] MEDS ORDERED: PROMETHAZINE HCL 25 MG TABLET PO PRN (09:00)
[2021-05-20] MEDS: HYDROmorphone *PCA* 10MG/50ML DISP.SYRIN PCA SCH ×2 (09:02→16:21)
[2021-05-20] MEDS: LACTATED RINGERS SOLUTION 1,000 ML IV SCH ×2 (09:06→13:00)
[2021-05-20 09:52] LABS: HEMATOCRIT 30.4 % (32.4-45.2); HEMOGLOBIN 10.4 GM/dL (10.7-15.3); MCH 31.6 pg (25.7-33.7); MCHC 34.1 g/dl (32.0-36.0); MEAN CELL VOLUME 92.7 fl (80-96); MEAN PLT VOLUME 8.3 fl (7.5-11.1); PLATELET COUNT 242 10^3/uL (134-434); RBC 3.28 M/mm3 (3.60-5.2); RDW 13.2 % (11.6-15.6); WHITE BLOOD COUNT 8.7 K/mm3 (4.0-10.0)
[2021-05-20] MEDS ORDERED: PATIENT'S OWN MEDICATION (NON-FORMULARY) (Ipratropium/Albuterol Sulfate 1 PUFF Inhaler) IH SCH (10:00)
[2021-05-20 10:09] LABS: BLOOD UREA NITROGEN 9.2 mg/dL (7-18)
[2021-05-20] MEDS: diazePAM CARPU-JECT 10 MG/2 ML DISP.SYRIN IVPUSH SCH ×2 (10:26→21:07)
[2021-05-20] MEDS: PANTOPRAZOLE 40 MG TABLET PO SCH ×2 (10:32→21:08)
[2021-05-20] MEDS: DULoxetine HCL 30 MG CAPSULE.DR PO SCH ×2 (10:32→21:08)
[2021-05-20] MEDS: LORazepam 1 MG TABLET PO SCH ×4 (10:32→21:08)
[2021-05-20] MEDS: SERTRALINE HCL 50 MG TABLET (FP) PO SCH (10:32)
[2021-05-20] MEDS: TIZANIDINE HCL 4 MG TABLET PO SCH ×4 (10:33→21:17)
[2021-05-20] MEDS ORDERED: PT OWN MED DRAWER 7, Y5N ONE ×3 (13:03→21:15)
[2021-05-20] MEDS: SODIUM CHLORIDE 1,000 ML IV SCH (19:06)
[2021-05-20] MEDS: ACETAMINOPHEN 325 MG TABLET (FP) PO PRN (19:06)
[2021-05-20] MEDS: GABAPENTIN 300 MG CAPSULE PO SCH (21:08)
[2021-05-20] MEDS: traZODone HCL 100 MG TABLET (FP) PO SCH (21:08)
[2021-05-20] MEDS: PATIENT'S OWN MEDICATION (NON-FORMULARY) (Naloxegol Oxalate [Movantik] 25 MG Tablet) PO SCH (22:43)
[2021-05-21] MEDS: ACETAMINOPHEN 325 MG TABLET (FP) PO PRN (01:41)
[2021-05-21] MEDS: CYCLOBENZAPRINE HCL 10 MG TABLET (FP) PO SCH ×3 (05:30→22:07)
[2021-05-21 07:47] LABS: BASO % 0.3 % (0-2.0); EOS % 0.1 % (0-4.5); HEMOGLOBIN 9.8 GM/dL (10.7-15.3); LYMPH % 11.4 % (8-40); MCH 31.2 pg (25.7-33.7); MCHC 33.9 g/dl (32.0-36.0); MEAN CELL VOLUME 92.2 fl (80-96); MEAN PLT VOLUME 8.3 fl (7.5-11.1); MONO % 10.2 % (3.8-10.2); PLATELET COUNT 203 10^3/uL (134-434); RBC 3.14 M/mm3 (3.60-5.2); RDW 13.1 % (11.6-15.6); WHITE BLOOD COUNT 11.1 K/mm3 (4.0-10.0)
[2021-05-21 09:08] LABS: CREATININE 0.8 mg/dL (0.55-1.3)
[2021-05-21 09:09] LABS: BILIRUBIN,TOTAL 0.6 mg/dL (0.2-1); TOT PROT 5.6 g/dl (6.4-8.2)
[2021-05-21 09:26] LABS: ALBUMIN 2.7 g/dl (3.4-5.0); CALCIUM 7.9 mg/dL (8.5-10.1); PHOSPHOROUS 2.9 mg/dL (2.5-4.9)
[2021-05-21] MEDS ORDERED: PT OWN MED DRAWER 7, Y5N ONE ×6 (10:09→21:58)
[2021-05-21] MEDS: LORazepam 1 MG TABLET PO SCH ×4 (10:36→22:06)
[2021-05-21] MEDS: TIZANIDINE HCL 4 MG TABLET PO SCH ×4 (10:37→22:09)
[2021-05-21] MEDS: DULoxetine HCL 30 MG CAPSULE.DR PO SCH ×2 (10:37→22:07)
[2021-05-21] MEDS: PANTOPRAZOLE 40 MG TABLET PO SCH ×2 (10:37→22:09)
[2021-05-21] MEDS: SERTRALINE HCL 50 MG TABLET (FP) PO SCH (10:38)
[2021-05-21] MEDS ORDERED: PCA PUMP NR ONE ×2 (11:15→12:47)
[2021-05-21] MEDS: diazePAM CARPU-JECT 10 MG/2 ML DISP.SYRIN IVPUSH SCH ×2 (11:50→22:08)
[2021-05-21] MEDS: HYDROmorphone HCl 2 MG/ML VIAL IVPUSH PRN (17:28)
[2021-05-21] MEDS: oxyCODONE HCL 5 MG TABLET PO PRN (20:31)
[2021-05-21] MEDS ORDERED: oxyCODONE HCL 20 MG SUSTAINED ACTING TABLET PO SCH (22:00)
[2021-05-21] MEDS: SODIUM CHLORIDE 1,000 ML IV SCH (22:06)
[2021-05-21] MEDS: traZODone HCL 100 MG TABLET (FP) PO SCH (22:07)
[2021-05-21] MEDS: GABAPENTIN 300 MG CAPSULE PO SCH (22:08)
[2021-05-21] MEDS: oxyCODONE HCL 10 MG SUSTAINED ACTING TABLET PO SCH (22:08)
[2021-05-21] MEDS: BISACODYL 10 MG SUPP.RECT RC PRN (22:09)
[2021-05-22] MEDS: HYDROmorphone HCl 2 MG/ML VIAL IVPUSH PRN (04:22)
[2021-05-22] MEDS ORDERED: PCA PUMP NR ONE (04:43)
[2021-05-22] MEDS: CYCLOBENZAPRINE HCL 10 MG TABLET (FP) PO SCH ×3 (05:52→22:11)
[2021-05-22 08:57] LABS: BASO % 0.3 % (0-2.0); EOS % 0.7 % (0-4.5); HEMATOCRIT 28.3 % (32.4-45.2); HEMOGLOBIN 9.6 GM/dL (10.7-15.3); LYMPH % 18.7 % (8-40); MCH 31.7 pg (25.7-33.7); MCHC 33.8 g/dl (32.0-36.0); MEAN CELL VOLUME 93.7 fl (80-96); MEAN PLT VOLUME 8.5 fl (7.5-11.1); MONO % 9.1 % (3.8-10.2); NEUT % 71.2 % (42.8-82.8); PLATELET COUNT 219 10^3/uL (134-434); RBC 3.02 M/mm3 (3.60-5.2); RDW 13.2 % (11.6-15.6); WHITE BLOOD COUNT 8.4 K/mm3 (4.0-10.0)
[2021-05-22] MEDS: oxyCODONE HCL 5 MG TABLET PO PRN ×2 (09:01→16:26)
[2021-05-22 09:22] LABS: ALBUMIN 2.4 g/dl (3.4-5.0); BLOOD UREA NITROGEN 7.3 mg/dL (7-18)
[2021-05-22 09:23] LABS: BILIRUBIN,TOTAL 0.5 mg/dL (0.2-1); TOT PROT 5.4 g/dl (6.4-8.2)
[2021-05-22 09:25] LABS: CREATININE 0.8 mg/dL (0.55-1.3); PHOSPHOROUS 1.5 mg/dL (2.5-4.9)
[2021-05-22 09:30] LABS: CALCIUM 7.8 mg/dL (8.5-10.1); MAGNESIUM 1.9 mg/dL (1.8-2.4)
[2021-05-22] MEDS ORDERED: PT OWN MED DRAWER 7, Y5N ONE ×3 (09:35→21:30)
[2021-05-22] MEDS: SERTRALINE HCL 50 MG TABLET (FP) PO SCH (11:00)
[2021-05-22] MEDS: PANTOPRAZOLE 40 MG TABLET PO SCH ×2 (11:00→22:10)
[2021-05-22] MEDS: LORazepam 1 MG TABLET PO SCH ×4 (11:00→22:10)
[2021-05-22] MEDS: DULoxetine HCL 30 MG CAPSULE.DR PO SCH ×2 (11:00→22:09)
[2021-05-22] MEDS: POLYETHYLENE GLYCOL (HEALTHYLAX) 3350 17 GM PACKET PO SCH (11:01)
[2021-05-22] MEDS: TIZANIDINE HCL 4 MG TABLET PO SCH ×4 (11:02→22:10)
[2021-05-22] MEDS: oxyCODONE HCL 10 MG SUSTAINED ACTING TABLET PO SCH ×2 (11:03→22:11)
[2021-05-22] MEDS: diazePAM CARPU-JECT 10 MG/2 ML DISP.SYRIN IVPUSH SCH (11:14)
[2021-05-22] MEDS ORDERED: NAPH,MB-DB/K PH,MBDB POWDER PACKET PO ONE (15:00)
[2021-05-22] MEDS: diazePAM 5 MG TABLET PO PRN (22:10)
[2021-05-22] MEDS: traZODone HCL 100 MG TABLET (FP) PO SCH (22:10)
[2021-05-22] MEDS: GABAPENTIN 300 MG CAPSULE PO SCH (22:12)
[2021-05-23] MEDS: oxyCODONE HCL 5 MG TABLET PO PRN (03:36)
[2021-05-23] MEDS: diazePAM 5 MG TABLET PO PRN (06:28)
[2021-05-23] MEDS: HYDROmorphone HCl 2 MG/ML VIAL IVPUSH PRN (06:28)
[2021-05-23] MEDS: CYCLOBENZAPRINE HCL 10 MG TABLET (FP) PO SCH ×3 (06:28→21:08)
[2021-05-23 08:35] LABS: BASO % 0.4 % (0-2.0); EOS % 1.9 % (0-4.5); HEMATOCRIT 29.4 % (32.4-45.2); LYMPH % 20.7 % (8-40); MCH 31.6 pg (25.7-33.7); MCHC 34.1 g/dl (32.0-36.0); MEAN CELL VOLUME 92.5 fl (80-96); MEAN PLT VOLUME 8.4 fl (7.5-11.1); MONO % 9.4 % (3.8-10.2); NEUT % 67.6 % (42.8-82.8); PLATELET COUNT 284 10^3/uL (134-434); RBC 3.18 M/mm3 (3.60-5.2); RDW 13.1 % (11.6-15.6); WHITE BLOOD COUNT 7.4 K/mm3 (4.0-10.0)
[2021-05-23 09:17] LABS: ALBUMIN 2.6 g/dl (3.4-5.0); BLOOD UREA NITROGEN 6.9 mg/dL (7-18); PHOSPHOROUS 1.8 mg/dL (2.5-4.9)
[2021-05-23 09:18] LABS: BILIRUBIN,TOTAL 0.4 mg/dL (0.2-1)
[2021-05-23 09:19] LABS: CALCIUM 8.2 mg/dL (8.5-10.1)
[2021-05-23 09:20] LABS: CREATININE 0.9 mg/dL (0.55-1.3)
[2021-05-23] MEDS ORDERED: PT OWN MED DRAWER 7, Y5N ONE ×2 (09:28→21:05)
[2021-05-23] MEDS: SERTRALINE HCL 50 MG TABLET (FP) PO SCH (09:35)
[2021-05-23] MEDS: DULoxetine HCL 30 MG CAPSULE.DR PO SCH ×2 (09:35→21:07)
[2021-05-23] MEDS: POLYETHYLENE GLYCOL (HEALTHYLAX) 3350 17 GM PACKET PO SCH (09:35)
[2021-05-23] MEDS: oxyCODONE HCL 10 MG SUSTAINED ACTING TABLET PO SCH ×2 (09:35→21:08)
[2021-05-23] MEDS: LORazepam 1 MG TABLET PO SCH ×4 (09:35→21:08)
[2021-05-23] MEDS: PANTOPRAZOLE 40 MG TABLET PO SCH ×2 (09:35→21:08)
[2021-05-23] MEDS: TIZANIDINE HCL 4 MG TABLET PO SCH ×4 (09:36→21:07)
[2021-05-23] MEDS: BISACODYL 10 MG SUPP.RECT RC PRN (14:46)
[2021-05-23] MEDS ORDERED: NAPH,MB-DB/K PH,MBDB POWDER PACKET PO ONE (17:38)
[2021-05-23] MEDS ORDERED: oxyCODONE HCL 5 MG TABLET PO ONE (19:00)
[2021-05-23] MEDS: traZODone HCL 100 MG TABLET (FP) PO SCH (21:07)
[2021-05-23] MEDS: GABAPENTIN 300 MG CAPSULE PO SCH (21:08)
[2021-05-24] MEDS ORDERED: ACETAMINOPHEN 1000 MG/100 ML VIAL (NON FORMULARY) IVPB ONE (02:12)
[2021-05-24] MEDS: CYCLOBENZAPRINE HCL 10 MG TABLET (FP) PO SCH ×3 (05:37→21:01)
[2021-05-24] MEDS ORDERED: PT OWN MED DRAWER 7, Y5N ONE (08:53)
[2021-05-24] MEDS: PANTOPRAZOLE 40 MG TABLET PO SCH ×2 (09:00→21:01)
[2021-05-24] MEDS: oxyCODONE HCL 10 MG SUSTAINED ACTING TABLET PO SCH ×2 (09:00→21:01)
[2021-05-24] MEDS: LORazepam 1 MG TABLET PO SCH ×4 (09:01→21:01)
[2021-05-24] MEDS: DULoxetine HCL 30 MG CAPSULE.DR PO SCH ×2 (09:01→21:02)
[2021-05-24] MEDS: POLYETHYLENE GLYCOL (HEALTHYLAX) 3350 17 GM PACKET PO SCH (09:01)
[2021-05-24] MEDS: SERTRALINE HCL 50 MG TABLET (FP) PO SCH (09:01)
[2021-05-24] MEDS: TIZANIDINE HCL 4 MG TABLET PO SCH ×4 (09:02→21:01)
[2021-05-24] MEDS ORDERED: KETOROLAC TROMETHAMINE 15 MG/ML VIAL IVPUSH ONE (12:03)
[2021-05-24] MEDS ORDERED: POTASSIUM PHOSPHATE 30 MM in SODIUM CHLORIDE 250 ML IVPB ONE (12:42)
[2021-05-24] MEDS ORDERED: NAPH,MB-DB/K PH,MBDB POWDER PACKET PO ONE (12:46)
[2021-05-24] MEDS ORDERED: KETOROLAC TROMETHAMINE 15 MG/ML VIAL IM ONE (12:46)
[2021-05-24] MEDS: oxyCODONE HCL 5 MG TABLET PO PRN (16:19)
[2021-05-24] MEDS: traZODone HCL 100 MG TABLET (FP) PO SCH (21:02)
[2021-05-24] MEDS: GABAPENTIN 300 MG CAPSULE PO SCH (21:02)
[2021-05-25] MEDS: CYCLOBENZAPRINE HCL 10 MG TABLET (FP) PO SCH (05:13)
[2021-05-25] MEDS: oxyCODONE HCL 5 MG TABLET PO PRN (05:13)
[2021-05-25 06:28] VITALS: BP 113/72; PULSE 85; TEMP 98.1
[2021-05-25] MEDS: oxyCODONE HCL 10 MG SUSTAINED ACTING TABLET PO SCH (09:02)
[2021-05-25] MEDS: POLYETHYLENE GLYCOL (HEALTHYLAX) 3350 17 GM PACKET PO SCH (09:02)
[2021-05-25] MEDS: PANTOPRAZOLE 40 MG TABLET PO SCH (09:03)
[2021-05-25] MEDS: DULoxetine HCL 30 MG CAPSULE.DR PO SCH (09:03)
[2021-05-25] MEDS: SERTRALINE HCL 50 MG TABLET (FP) PO SCH (09:03)
[2021-05-25] MEDS: LORazepam 1 MG TABLET PO SCH (09:03)
[2021-05-25] MEDS ORDERED: PT OWN MED DRAWER 7, Y5N ONE (09:08)
[2021-05-25] MEDS: TIZANIDINE HCL 4 MG TABLET PO SCH (09:16)
== END 2021-05-25 10:49 | DRG 460 ==
LOC: J2C 04:25 → EDSTATUS 15:06 → J8W 18:57
PROVIDERS: ADMIT Orthopaedic Surgery Orthopaedic Surgery of the Spine; ATTEND Internal Medicine
PROC: 0SP004Z Removal of Internal Fixation Device from Lumbar Vertebral Joint, Open Approach (ICD-10-PCS; 2021-05-19)
PROC: 01NB0ZZ Release Lumbar Nerve, Open Approach (ICD-10-PCS; 2021-05-19)
PROC: 0SG3071 Fusion of Lumbosacral Joint with Autologous Tissue Substitute, Posterior Approach, Posterior Column, Open Approach (ICD-10-PCS; 2021-05-19)
PROC: 0SP304Z Removal of Internal Fixation Device from Lumbosacral Joint, Open Approach (ICD-10-PCS; 2021-05-19)
PROC: 01NR0ZZ Release Sacral Nerve, Open Approach (ICD-10-PCS; 2021-05-19)
PROC: 4A11X4G Monitoring of Peripheral Nervous Electrical Activity, Intraoperative, External Approach (ICD-10-PCS; 2021-05-19)
PROC: 07DR3ZZ Extraction of Iliac Bone Marrow, Percutaneous Approach (ICD-10-PCS; 2021-05-19)
PROC: 0SG1071 Fusion of 2 or more Lumbar Vertebral Joints with Autologous Tissue Substitute, Posterior Approach, Posterior Column, Open Approach (ICD-10-PCS; principal; 2021-05-19 08:00)
DX: M48.062 Spinal stenosis, lumbar region with neurogenic claudication (principal); M47.26 Other spondylosis with radiculopathy, lumbar region; M53.2X6 Spinal instabilities, lumbar region; M53.2X7 Spinal instabilities, lumbosacral region; J44.9 Chronic obstructive pulmonary disease, unspecified; D64.9 Anemia, unspecified; Z98.84 Bariatric surgery status; Z86.718 Personal history of other venous thrombosis and embolism; M71.58 Other bursitis, not elsewhere classified, other site
CPT/HCPCS: 36415; 72131-TC; 76000-TC-FY; 80048; 80053; 83735; 84100; 85025; 85027; 86850; 86900; 86901; 94760; 97116-GP; 97162-GP; C9803; J0131; J1644; U0003; U0005